=== PATIENT | male | born 1980 | race Two or more races ===

== ENCOUNTER 2018-07-04 11:20 | Emergency (ER) | payer SELFPAY ==
[2018-07-04] MEDS ORDERED: DIPH/PERTUSS(ACELL)/TETANUS VAC/PF 0.5 ML SYR (>=10YO) IM ONE (11:51)
--- NOTE | 2018-07-04 11:52 | ER Document Report ---
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 Patient was unable to locate any of the tissue that came off of the tip of the thumb. His last tetanus shot is while he was in high school. He has no medical problems and has no allergies. He did drive to the ER today. - Related Data Allergies/Adverse Reactions: No Known Allergies Allergy (Unverified 07/04/18 11:22) Physical Exam - Vital signs Vitals: Temp Pulse Resp BP Pulse Ox 98.2 F 93 15 120/79 99 07/04/18 11:41 07/04/18 11:41 07/04/18 11:41 07/04/18 11:41 07/04/18 11:41 Course - Vital Signs Vital signs: Temp Pulse Resp BP Pulse Ox 98.2 F 93 15 120/79 99 07/04/18 11:41 07/04/18 11:41 07/04/18 11:41 07/04/18 11:41 07/04/18 11:41
--- NOTE | 2018-07-04 12:53 | RADIOLOGY REPORT (SQ) ---
EXAM DESCRIPTION: FINGER RIGHT COMPLETED DATE/TIME: 07/04/2018 12:41 pm REASON FOR STUDY: right thumb x-ray COMPARISON: None. NUMBER OF VIEWS: Three views. TECHNIQUE: AP, lateral, and oblique images acquired of the right thumb. LIMITATIONS: None. FINDINGS: MINERALIZATION: Normal. BONES: No acute fracture or dislocation. No worrisome bone lesions. SOFT TISSUES: Distal soft tissue defect. No foreign body. OTHER: No other significant finding. IMPRESSION: AMPUTATION OF THE DISTAL SOFT TISSUES OF THE THUMB. NO FRACTURE. NO RADIOPAQUE FOREIGN BODY. COMMENT: SITE OF TRAUMA/COMPLAINT MARKED/STAMP COMPLETED: YES. TECHNICAL DOCUMENTATION: JOB ID: [id number] [email or web address]- All Rights Reserved Reading location - IP/workstation name: [email or web address]
[2018-07-04] MEDS ORDERED: IBUPROFEN 600 MG TABLET PO ONE (13:41)
--- NOTE | 2018-07-04 13:58 | ER Document Report ---
ED General - General Chief Complaint: Finger Injury Stated Complaint: FINGER INJURY Time Seen by Provider: 07/04/18 11:48 Mode of Arrival: Ambulatory - [facility] Notes: Patient is a 37-year-old male that presents to the emergency department for chief complaint of right thumb injury. Just prior to arrival patient cut his right thumb on a saw at work. His tetanus vaccine was more than 10 years ago. He reports pain in the tip of his right thumb that is worse with any kind of movement. He has not taken any medication for his pain. He denies relieving factors. He states he looked around for the amputated part of his thumb but could not find it. He denies other injuries. Past Medical History: Negative Past Surgical History: Negative Social History: Denies drugs alcohol and tobacco Family History: Reviewed and noncontributory for presenting illness Allergies: Reviewed, see documented allergy list. REVIEW OF SYSTEMS: CONSTITUTIONAL : No fever No chills No diaphoresis No recent illness EENT: No vision changes No congestion No sore throat CARDIOVASCULAR: No chest pain No palpitations RESPIRATORY: No shortness of breath No cough No difficulty breathing GASTROINTESTINAL: No abdominal pain No nausea No vomiting No diarrhea GENITOURINARY: No dysuria No hematuria No difficulty urinating MUSCULOSKELETAL: No back pain No leg pain No arm pain Right hand pain SKIN: No rashes Finger laceration LYMPHATIC: No swollen, enlarged glands. NEUROLOGICAL: No lightheadedness No headache No weakness No paresthesias PSYCHIATRIC: No anxiety No depression PHYSICAL EXAMINATION: Vital signs reviewed, nursing noted reviewed. GENERAL: Well-appearing, well-nourished and in no acute distress. HEAD: Atraumatic, normocephalic. EYES: Eyes appear normal, extraocular movements intact, sclera anicteric, conjunctiva are normal. ENT: nares patent, oropharynx clear without exudates. Moist mucous membranes. NECK: Normal range of motion, supple without lymphadenopathy LUNGS: Breath sounds clear to auscultation bilaterally and equal. No wheezes rales or rhonchi. HEART: Regular rate and rhythm without murmurs ABDOMEN: Soft, nontender, normoactive bowel sounds. No rebound, guarding, or rigidity. No masses appreciated. EXTREMITIES: Distal tip of right thumb amputated with no active bleeding, no bony tenderness or exposed bone, good range of motion, no pitting or edema. NEUROLOGICAL: No focal neurological deficits. Moves all extremities spontaneously Motor and sensory grossly intact on exam. PSYCH: Normal mood, normal affect. SKIN: Warm, Dry, normal turgor, distal right first digit laceration with partial involvement of nail - Related Data Allergies/Adverse Reactions: No Known Allergies Allergy (Unverified 07/04/18 11:22) Past Medical History - General Information source: Patient - Social History Smoking Status: Never Smoker Frequency of alcohol use: None Drug Abuse: None Family History: Reviewed & Not Pertinent Patient has suicidal ideation: No Patient has homicidal ideation: No Renal/ Medical History: Denies: Hx Peritoneal Dialysis Physical Exam - Vital signs Vitals: Temp Pulse Resp BP Pulse Ox 98.2 F 93 15 120/79 99 07/04/18 11:41 07/04/18 11:41 07/04/18 11:41 07/04/18 11:41 07/04/18 11:41 Course - Re-evaluation Re-evalutation: 07/04/18 13:56 Vitals reviewed. Nursing notes reviewed. Tetanus vaccine was updated. Patient given ibuprofen for pain. X-ray shows no bony involvement of the laceration. There is no exposed bone on physical exam. Patient's bleeding has stopped. His wound was cleaned copiously with Shur-Clens and dressed with Gelfoam and a bulky gauze dressing. Patient was encouraged to follow in the next few days for wound reevaluation. He was counseled on symptoms of infection and return precautions. He was counseled on wound care. He is stable at discharge. Finger X-Ray 07/04/18 11:51 IMPRESSION: AMPUTATION OF THE DISTAL SOFT TISSUES OF THE THUMB. NO FRACTURE. NO RADIOPAQUE FOREIGN BODY. - Vital Signs Vital signs: Temp Pulse Resp BP Pulse Ox 98.2 F 93 15 120/79 99 07/04/18 11:41 07/04/18 11:41 07/04/18 11:41 07/04/18 11:41 07/04/18 11:41 Procedures - Immobilization Right Thumb Time completed: 13:58 Pre-Proc Neuro Vasc Exam: Other - No active bleeding Performed by: RN Notes: 07/04/18 13:58 AlumaFoam finger splint placed over right thumb for protection of his distal amputation and immobilization. Neurovascular exam unchanged after splinting. Discharge - Discharge Clinical Impression: Laceration of thumb with damage to nail Qualifiers: Encounter type: initial encounter Foreign body presence: without foreign body Laterality: right Qualified Code(s): S61.111A - Laceration without foreign body of right thumb with damage to nail, initial encounter Condition: Stable Disposition: HOME, SELF-CARE Instructions: Tetanus Immunization Given ([facility]), Laceration Care ([facility]) Additional Instructions: Please return to the emergency department if you have any worsening, or concern of your symptoms. Please return to the emergency department if you develop chest pain, difficulty breathing, severe abdominal pain, or ongoing vomiting. Please follow-up with your primary care physician in 2-3 days and any other recommended physicians. If prescribed, take all medications as directed. If you have any questions or concerns do not hesitate to return the emergency department for evaluation. Referrals: [facility] [Provider Group] - Follow up as needed
[2018-07-04 14:30] VITALS: BP 120/64
== END 2018-07-04 14:32 | disposition home or self-care (01) ==
LOC: ER 11:20
DX: S61.111A Laceration without foreign body of right thumb with damage to nail, initial encounter (principal); W29.8XXA Contact with other powered hand tools and household machinery, initial encounter; Y99.0 Civilian activity done for income or pay; Z23 Encounter for immunization
CPT/HCPCS: 90471; 90715; 99283

== ENCOUNTER 2018-11-26 15:59 | Inpatient (IN) | payer SELFPAY ==
--- NOTE | 2018-11-26 17:35 | ER Document Report ---
ED Medical Screen (RME) - General Chief Complaint: Abdominal Pain Stated Complaint: ABDOMINAL PAIN Time Seen by Provider: 11/26/18 17:29 TRAVEL OUTSIDE OF THE [place] IN LAST 30 DAYS: No - HPI Notes: 11/26/18 17:33 Patient is a 38-year-old male with a history of umbilical hernia who presents complaining of suprapubic pain is been present for about a week, but getting worse. Patient states on occasion he will have some discomfort when he urinates, but has not noticed any drainage. He has not noticed any rash or lesion. He is eating and drinking without difficulties. He is having normal bowel movements. No testicular or scrotal pains. Denies drug allergies. Denies JOSE, fever, neck pain, URI, CP, SOB, dysuria, back pain, or rash. I have treated and performed a rapid initial assessment of this patient. A comprehensive ED assessment and evaluation of the patient, analysis of test results and completion of medical decision making process will be conducted by additional ED providers. PHYSICAL EXAMINATION: GENERAL: Well-appearing, well-nourished and in no acute distress. A&Ox4. Answers questions appropriately. LUNGS: Breath sounds clear to auscultation bilaterally and equal. No wheezes rales or rhonchi. HEART: Regular rate and rhythm without murmurs, rubs, gallops. ABDOMEN: Soft, nondistended abdomen. No guarding, no rebound. Normal bowel sounds present. No CVA tenderness bilaterally. + relatively smaller umbilical hernia noted (difficult to entirely reduce in triage), + tenderness suprapubic area (cannot elicit thorough abd exam w/o bed, however). : Uncircum. No obvious urethral discharge, rash, lesion, ulceration. No testicular swelling or tenderness appreciated. No transverse lie. Hemostatic intact bilaterally. - Related Data Allergies/Adverse Reactions: No Known Allergies Allergy (Verified 11/26/18 16:44) Past Medical History - Social History Chew tobacco use (# tins/day): No Frequency of alcohol use: Occasional Drug Abuse: None Renal/ Medical History: Denies: Hx Peritoneal Dialysis Physical Exam - Vital signs Vitals: Temp Pulse Resp BP Pulse Ox 98.2 F 94 18 123/84 98 11/26/18 16:45 11/26/18 16:45 11/26/18 16:45 11/26/18 16:45 11/26/18 16:45 Course - Vital Signs Vital signs: Temp Pulse Resp BP Pulse Ox 98.2 F 94 18 123/84 98 11/26/18 16:45 11/26/18 16:45 11/26/18 16:45 11/26/18 16:45 11/26/18 16:45
[2018-11-26 18:03] LABS: APPEARANCE,URINE CLEAR; BILIRUBIN,URINE NEGATIVE (NEGATIVE); COLOR,URINE AMBER; GLUCOSE, URINE NEGATIVE (NEGATIVE); KETONES,URINE NEGATIVE (NEGATIVE); LEUKOCYTE ESTERASE,URINE NEGATIVE (NEGATIVE); NITRITE,URINE NEGATIVE (NEGATIVE); PROTEIN,URINE NEGATIVE (NEGATIVE); URINE SPECIFIC GRAVITY 1.029; UROBILINOGEN,URINE NEGATIVE mg/dL (<2.0)
[2018-11-26 18:09] LABS: ABSOLUTE BASOPHILS # (AUTO) 0.1 10^3/uL (0.0-0.2); ABSOLUTE EOSINOPHILS # (AUTO) 0.3 10^3/uL (0.0-0.6); ABSOLUTE LYMPHOCYTES (AUTO) 2.6 10^3/uL (0.5-4.7); ABSOLUTE MONOCYTES (AUTO) 1.5 10^3/uL (0.1-1.4); ABSOLUTE NEUT (AUTO) 10.4 10^3/uL (1.7-8.2); BASOPHILS % (AUTO) 0.4 % (0-2); EOSINOPHILS % (AUTO) 2.1 % (0-6); HEMATOCRIT 39.8 % (37.9-51.0); HEMOGLOBIN 13.7 g/dL (13.5-17.0); LYMPHOCYTES % (AUTO) 17.3 % (13-45); MEAN CORPUSCULAR HEMOGLOBIN 30.1 pg (27.0-33.4); MEAN CORPUSCULAR HGB CONC 34.5 g/dL (32.0-36.0); MEAN CORPUSCULAR VOLUME 87 fl (80-97); MONOCYTES % (AUTO) 10.1 % (3-13); PLATELET COUNT 505 10^3/uL (150-450); RED BLOOD COUNT 4.55 10^6/uL (4.35-5.55); RED CELL DISTRIBUTION WIDTH 11.9 % (11.5-14.0); SEGMENTED NEUTROPHILS % (AUTO) 70.1 % (42-78); TOTAL CELLS COUNTED % (AUTO) 100 %; WHITE BLOOD COUNT 14.9 10^3/uL (4.0-10.5)
[2018-11-26 18:32] LABS: ALANINE AMINOTRANSFERASE 161 U/L (21-72); ALBUMIN 4.4 g/dL (3.5-5.0); ALKALINE PHOSPHATASE 218 U/L (38-126); ANION GAP 11 (5-19); ASPARTATE AMINO TRANSFERASE 80 U/L (17-59); BILIRUBIN,DIRECT 0.4 mg/dL (0.0-0.4); BILIRUBIN,TOTAL 0.9 mg/dL (0.2-1.3); BLOOD UREA NITROGEN 16 mg/dL (7-20); CARBON DIOXIDE 25 mmol/L (22-30); CHLORIDE 104 mmol/L (98-107); GLUCOSE 106 mg/dL (75-110); POTASSIUM 4.8 mmol/L (3.6-5.0); SODIUM 140.1 mmol/L (137-145); TOTAL PROTEIN 8.1 g/dL (6.3-8.2)
[2018-11-26] MEDS ORDERED: KETOROLAC TROMETHAMINE INJ/PF 30 MG/1 ML SDV IV ONE (19:14)
[2018-11-26] MEDS ORDERED: ONDANSETRON HCL INJ/PF 4 MG/2 ML SDV IV ONE (19:16)
[2018-11-26] MEDS ORDERED: NORMAL SALINE 1000 ML 1,000 ML IV ONE (19:16)
[2018-11-26 19:41] LABS: CHLAM PCR NOT DETECTED (NOT DETECT); GON PCR NOT DETECTED (NOT DETECT)
--- NOTE | 2018-11-26 20:40 | ER Document Report ---
ED General - General Chief Complaint: Abdominal Pain Stated Complaint: ABDOMINAL PAIN Time Seen by Provider: 11/26/18 17:29 Notes: Patient is a 38-year-old male without chronic medical problems, current everyday smoker, presents with complaints of 1 week of progressively worsening lower abdominal pain. Patient states that the pain started 1 week ago, has gotten progressively worse since that time. Describes it as a severe, throbbing, achi ng pain to the diffuse lower abdomen but most focal to the suprapubic quadrant. Regards symptoms as being severe in nature. States it is worsened by any attempt to having a bowel movement. Nothing improves the pain. Denies having any similar symptoms in the past. Has not had fever but states that he feels very warm and then sometimes is shaking. Has had nausea but no vomiting. Does not have a primary care physician. Has no history of abdominal surgeries. TRAVEL OUTSIDE OF THE [place] IN LAST 30 DAYS: No - Related Data Allergies/Adverse Reactions: No Known Allergies Allergy (Verified 11/26/18 16:44) Past Medical History - General Information source: Patient - Social History Smoking Status: Current Every Day Smoker Chew tobacco use (# tins/day): No Frequency of alcohol use: Occasional Drug Abuse: None Lives with: Spouse/Significant other Family History: Reviewed & Not Pertinent Patient has suicidal ideation: No Patient has homicidal ideation: No Renal/ Medical History: Denies: Hx Peritoneal Dialysis Review of Systems - Review of Systems Notes: Constitutional: Negative for fever. HENT: Negative for sore throat. Eyes: Negative for visual changes. Cardiovascular: Negative for chest pain. Respiratory: Negative for shortness of breath. Gastrointestinal: Positive for abdominal pain, nausea Genitourinary: Negative for dysuria. Musculoskeletal: Negative for back pain. Skin: Negative for rash. Neurological: Negative for headaches, weakness or numbness. 10 point ROS negative except as marked above and in HPI. Physical Exam - Vital signs Vitals: Temp Pulse Resp BP Pulse Ox 98.2 F 94 18 123/84 98 11/26/18 16:45 11/26/18 16:45 11/26/18 16:45 11/26/18 16:45 11/26/18 16:45 Interpretation: Normal Notes: PHYSICAL EXAMINATION: GENERAL: Appears moderately unwell but in no acute distress. HEAD: Atraumatic, normocephalic. EYES: Pupils equal round and reactive to light, extraocular movements intact, sclera anicteric, conjunctiva are normal. ENT: nares patent, oropharynx clear without exudates. Moist mucous membranes. NECK: Normal range of motion, supple without lymphadenopathy LUNGS: Breath sounds clear to auscultation bilaterally and equal. No wheezes rales or rhonchi. HEART: Regular rate and rhythm without murmurs ABDOMEN: Soft, focal tenderness to the right lower quadrant, suprapubic quadrant and left lower quadrant with rebound in all locations. Normoactive bowel soun ds. Rectal: Pain on palpation of the prostate although no bogginess or apparent enlargement of the prostate. EXTREMITIES: Normal range of motion, no pitting or edema. No cyanosis. NEUROLOGICAL: No focal neurological deficits. Moves all extremities spontaneously and on command. PSYCH: Normal mood, normal affect. SKIN: Warm, Dry, normal turgor, no rashes or lesions noted. Course - Re-evaluation Re-evalutation: 11/26/18 20:40 Patient presents with 1 week of progressively worsening suprapubic and right lower quadrant abdominal pain. On exam the patient has some rebound tenderness to the right lower and suprapubic quadrants. No upper abdominal tenderness. No testicular exam abnormalities including positive cremasteric reflex, no tenderness over the testicles or epididymides on either side. No penile discharge or lesions. Prostate exam does demonstrate that the patient does have significant prostatic tenderness on palpation. CT abdomen pelvis will be completed for evaluation of possible intra-abdominal abscess secondary to possible appendix perforation versus acute appendicitis. Initial labs demonstrate leukocytosis, otherwise unremarkable. 11/26/18 21:08 CT abdomen pelvis does demonstrate sigmoid diverticulitis with an adjacent abscess. Case discussed with hospitalist Dr. Sommer who is accepted the patient. Also consulted Dr. Clayton and spoke to him regarding this case formally. Ciprofloxacin and Flagyl have been initiated. - Vital Signs Vital signs: Temp Pulse Resp BP Pulse Ox 97.6 F 78 18 131/68 H 95 11/26/18 23:23 11/27/18 00:47 11/26/18 23:23 11/26/18 23:23 11/26/18 23:23 - Laboratory Result Diagrams: 11/26/18 17:47 11/26/18 17:47 Laboratory results interpreted by me: 11/26/18 11/26/18 17:47 17:47 WBC 14.9 H Plt Count 505 H Absolute Neutrophils 10.4 H Absolute Monocytes 1.5 H AST 80 H ALT 161 H Alkaline Phosphatase 218 H - Diagnostic Test Radiology reviewed: Image reviewed, Reports reviewed Discharge - Discharge Clinical Impression: Sigmoid diverticulitis, Abscess of sigmoid colon Condition: Fair Disposition: ADMITTED INPATIENT Admitting Provider: Kemal (Hospitalist) Unit Admitted: Medical Floor
--- NOTE | 2018-11-26 20:43 | RADIOLOGY REPORT (SQ) ---
CT ABDOMEN PELVIS WITH IV CONTRAST HISTORY: Right lower quadrant pain. COMPARISON: None. TECHNIQUE: CT scan of the abdomen and pelvis was performed with IV contrast. This exam was performed according to our departmental dose-optimization program, which includes automated exposure control, adjustment of the mA and/or kV according to patient size and/or use of iterative reconstruction technique. FINDINGS: The lung bases are clear. No pleural or pericardial effusions. There is no hiatal hernia. The liver, spleen, pancreas, gallbladder, adrenal glands, and kidneys are unremarkable. No urinary stones are seen. There is wall thickening of the urinary bladder which is likely reactive to the overlying inflammation. There is diffuse wall thickening with surrounding inflammatory stranding of the sigmoid colon consistent with acute diverticulitis. Additionally, there is a extraluminal 3.3 x 3.5 cm hypodense collection adjacent to the sigmoid colon consistent with developing abscess. No small bowel obstruction. The appendix is normal. The aorta is normal caliber. No acute bony findings are seen. There is no pathologic body wall hernia. IMPRESSION: Acute sigmoid diverticulitis with adjacent 3.5 cm developing abscess.
[2018-11-26] MEDS ORDERED: METRONIDAZOLE 500 MG/NS RTU 500 MG/100 ML RTUPB IV ONE (20:58)
[2018-11-26] MEDS ORDERED: CIPROFLOXACIN 400 MG/D5W RTU 400 MG/200 ML RTUPB IV ONE (20:58)
[2018-11-26] MEDS ORDERED: RINGERS SOLUTION,LACTATED 1,000 ML IV ONE (20:59)
[2018-11-26] MEDS ORDERED: ONDANSETRON HCL INJ/PF 4 MG/2 ML SDV IV PRN (21:35)
[2018-11-26] MEDS ORDERED: ACETAMINOPHEN 650 MG SUPP.RECT PR PRN (21:35)
[2018-11-26] MEDS ORDERED: NICOTINE 21 MG/24 HR PATCH.TD24 TD PRN (21:43)
--- NOTE | 2018-11-26 23:34 | PDOC H&P ---
History of Present Illness Admission Date/PCP: 11/26/2018 No PCP Patient complains of: Abdominal pain History of Present Illness: FRANDY SANDOVAL is a 38 year old male who presented to the Emergency Room with a 1 1/2 week history of abdominal pain. He admits a constantly present, waxing and waning (from mild to extremely severe), dull, aching, pressure-like pain in his suprapubic region, without radiation. He endorses that the pain worsens in association with defecation and urination. He acknowledges that his pain has been transiently improved by taking Rusty aspirin, 2 tablets every 4 hours. He further admits frequent episodes of subjective fever with chills and generalized malaise occurring over the last 7 days. He also endorses brief periods of anorexia associated with the most severe pain episodes. He denies prior similar episodes and he has not identified any other aggravating or ameliorating factors for his pain. In the ER he was found to have acute sigmoid diverticulitis with abscess formation and as such was admitted for further evaluation and treatment. Past Medical History Cardiac Medical History: Denies: Coronary Artery Disease, Hypertension Pulmonary Medical History: Denies: Asthma, Chronic Obstructive Pulmonary Disease (COPD) EENT Medical History: Reports: Eyes - prescription eyewear Denies: Cataracts, Ears - hearing aids Neurological Medical History: Denies: Multiple Sclerosis, Seizures Endocrine Medical History: Denies: Diabetes Mellitus Type 1, Diabetes Mellitus Type 2, Hyperthyroidism, Hypothyroidism Renal/ Medical History: Denies: Chronic Kidney Disease, Nephrolithiasis Malignancy Medical History: Reports: None GI Medical History: Denies: Cirrhosis, Crohn's Disease, Gastroesophageal Reflux Disease, Hepatitis, Peptic Ulcer Disease, Ulcerative Colitis Musculoskeltal Medical History: Denies: Arthritis, Fibromyalgia Skin Medical History: Denies: Eczema, Psoriasis Psychiatric Medical History: Denies: Alcohol Dependency, Substance Abuse, Tobacco Dependency Traumatic Medical History: Reports: None Hematology: Denies: Anemia, Bleeding Tendencies Infectious Medical History: Reports: None Past Surgical History Past Surgical History: Reports: None Social History Information Source: Patient Lives with: Spouse/Significant other Smoking Status: Current Every Day Smoker Frequency of Alcohol Use: Occasional Hx Recreational Drug Use: No Drugs: None Hx Prescription Drug Abuse: No - Advance Directive Resuscitation Status: Full Code Surrogate healthcare decision maker:: Omid Sandoval (his father) Family History Family History: CAD. denies: DM, Hypertension, Malignancy Parental Family History Reviewed: Yes Children Family History Reviewed: No Sibling(s) Family History Reviewed.: Yes Medication/Allergy Home Medications: Aspirin [Aspirin 325 mg Tablet] 650 mg PO Q4HP PRN MDD 12 tablets 11/26/18 Allergies/Adverse Reactions: No Known Allergies Allergy (Verified 11/26/18 16:44) Review of Systems Constitutional: PRESENT: chills - Subjective, fever(s) - Subjective, other - Generalized malaise Eyes: ABSENT: visual disturbances, other - Eye pain Ears: ABSENT: hearing changes, other - Ear pain Nose, Mouth, and Throat: ABSENT: mouth pain, sore throat Cardiovascular: ABSENT: chest pain, dyspnea on exertion, edema, orthropnea, palpitations Respiratory: ABSENT: cough, dyspnea Gastrointestinal: PRESENT: as per HPI, abdominal pain, other - Episodic anorexia. ABSENT: constipation, diarrhea, nausea, vomiting Genitourinary: ABSENT: difficulty urinating, dysuria, hematuria Musculoskeletal: ABSENT: back pain, joint swelling, muscle weakness Integumentary: ABSENT: pruritus, rash Neurological: ABSENT: confusion, convulsions, focal weakness, memory loss, syncope Psychiatric: ABSENT: anxiety, depression Endocrine: ABSENT: cold intolerance, heat intolerance Hematologic/Lymphatic: ABSENT: easy bleeding, easy bruising Physical Exam Vital Signs: Temp Pulse Resp BP Pulse Ox 100.1 F 81 18 116/73 100 11/26/18 20:20 11/26/18 20:20 11/26/18 20:20 11/26/18 20:20 11/26/18 20:20 Intake & Output 11/24/18 11/25/18 11/26/18 23:59 23:59 23:59 Weight 83.5 kg General appearance: PRESENT: no acute distress, cooperative Head exam: PRESENT: atraumatic, normocephalic Eye exam: ABSENT: conjunctival injection, scleral icterus Ear exam: PRESENT: normal external ear exam. ABSENT: bleeding, drainage Mouth exam: PRESENT: dry mucosa, neck supple Neck exam: ABSENT: thyromegaly, tracheal deviation Respiratory exam: PRESENT: clear to auscultation paulino, symmetrical, unlabored Cardiovascular exam: PRESENT: RRR. ABSENT: clicks, gallop, rubs Pulses: PRESENT: normal radial pulses, normal dorsalis pedis pul Vascular exam: PRESENT: normal capillary refill. ABSENT: pallor GI/Abdominal exam: PRESENT: distended - Minimally distended, guarding - Moderate involuntary guarding noted on exam of the suprapubic abdomen, hernia - Small umbilical hernia noted, hypoactive bowel sounds, rebound - Moderately severe rebound tenderness noted in the suprapubic region., soft, tenderness - Moderately severe tenderness on palpation of the suprapubic area, left greater than right and maximal intensity just to the left of the midline.. ABSENT: organolmegaly, rigid Rectal exam: PRESENT: deferred Extremities exam: ABSENT: joint swelling, pedal edema Musculoskeletal exam: PRESENT: full ROM, normal inspection Neurological exam: PRESENT: alert, oriented to person, oriented to place, oriented to time, oriented to situation, CN II-XII grossly intact. ABSENT: motor sensory deficit Psychiatric exam: PRESENT: appropriate affect, normal mood Skin exam: PRESENT: dry, intact, warm. ABSENT: jaundice, rash, urticaria Results Laboratory Results: 11/26/18 17:47 11/26/18 17:47 11/26/18 11/26/18 11/26/18 17:47 17:47 17:47 WBC 14.9 H RBC 4.55 Hgb 13.7 Hct 39.8 MCV 87 MCH 30.1 MCHC 34.5 RDW 11.9 Plt Count 505 H Seg Neutrophils % 70.1 Lymphocytes % 17.3 Monocytes % 10.1 Eosinophils % 2.1 Basophils % 0.4 Absolute Neutrophils 10.4 H Absolute Lymphocytes 2.6 Absolute Monocytes 1.5 H Absolute Eosinophils 0.3 Absolute Basophils 0.1 Sodium 140.1 Potassium 4.8 Chloride 104 Carbon Dioxide 25 Anion Gap 11 BUN 16 Creatinine 0.98 Est GFR ( Amer) > 60 Est GFR (Non-Af Amer) > 60 Glucose 106 Calcium 10.0 Total Bilirubin 0.9 AST 80 H ALT 161 H Alkaline Phosphatase 218 H Total Protein 8.1 Albumin 4.4 Urine Color ADRIANNE Urine Appearance CLEAR Urine pH 5.0 Ur Specific [place] 1.029 Urine Protein NEGATIVE Urine Glucose (UA) NEGATIVE Urine Ketones NEGATIVE Urine Blood NEGATIVE Urine Nitrite NEGATIVE Ur Leukocyte Esterase NEGATIVE Urine WBC (Auto) 1 Urine RBC (Auto) 1 Impressions: Abdomen/Pelvis CT 11/26/18 19:14 IMPRESSION: Acute sigmoid diverticulitis with adjacent 3.5 cm developing abscess. Assessment and Plan - Diagnosis (1) Acute diverticulitis of intestine Is this a current diagnosis for this admission?: Yes Plan: Patient be treated with IV fluids utilizing lactated Ringer's at 250 mL/h. He will be started on IV antibiotics utilizing Zosyn 3.375 g every 6 hours. He will be treated with Nubain 10 mg IV every 3 hours as needed for pain. He will receive Tylenol suppository 650 mg rectally every 4 hours as needed for control of fever greater than 101 F. He will be maintained n.p.o. until cleared for dietary intake by surgery. A surgical consult with Dr. Clayton will be obtained. Serial serum lactates will be obtained and daily laboratory consisting of a CBC, basic metabolic profile, a hepatic profile and a magnesium level will be obtained. Patient is being admitted to a medical floor and will receive usual supportive and symptomatic therapies and treatments as appropriate. (2) Diverticulitis of intestine with perforation and abscess Qualifiers: Diverticulitis site: large intestine Diverticulitis bleeding: without bleeding Qualified Code(s): K57.20 - Diverticulitis of large intestine with perforation and abscess without bleeding Is this a current diagnosis for this admission?: Yes Plan: Patient will be treated with Zosyn 3.375 g IV every 6 hours. Daily CBC's, magnesium levels and basic metabolic profiles will be followed as part of his assessment. He will be maintained on IV fluids at high volume initially and he will be placed on a medical floor. Surgical consultation with Dr. Clayton will be obtained. His pain will be treated with Nubain 10 mg IV every 3 hours as needed. (3) Elevated temperature due to infection Is this a current diagnosis for this admission?: Yes Plan: Patient's temperature will be controlled using acetaminophen 650 mg suppositories every 4 hours as needed for fever greater than 101 F. Rectal suppositories are required at this time due to the patient's n.p.o. status. (4) Leukocytosis Qualifiers: Leukocytosis type: unspecified Qualified Code(s): D72.829 - Elevated white blood cell count, unspecified Is this a current diagnosis for this admission?: Yes Plan: Patient's CBC will be followed on a daily basis with further investigation of the patient's leukocytosis if indicated. (5) Elevated liver function tests Is this a current diagnosis for this admission?: Yes Plan: Patient's liver enzymes will be followed on a daily basis with further evaluation as warranted. (6) Tobacco use disorder, severe, dependence Is this a current diagnosis for this admission?: Yes Plan: Smoking cessation is advised and counseled briefly. A nicotine replacement patch will be provided for the patient's use, if desired. - Time Time Spent with patient: 25-34 minutes Smoking Cessation Education: 3 to 10 minutes Medications reviewed and adjusted accordingly: No - No meds Anticipated discharge: Home - Inpatient Certification Based on my medical assessment, after consideration of the patient's comorbidities, presenting symptoms, or acuity I expect that the services needed warrant INPATIENT care.: Yes I certify that my determination is in accordance with my understanding of Medicare's requirements for reasonable and necessary INPATIENT services [42 CFR 412.3e].: Yes Medical Necessity: Need Close Monitoring Due to Risk of Patient Decompensation, Need For IV Fluids, Need for Pain Control, Need for IV Antibiotics, Need for Surgery, Risk of Complication if Not Cared For in Hospital
--- NOTE | 2018-11-26 23:46 | ADVANCED CARE ---
- Diagnosis (1) Acute diverticulitis of intestine Diagnosis Current: Yes (2) Diverticulitis of intestine with perforation and abscess Diagnosis Current: Yes (3) Elevated temperature due to infection Diagnosis Current: Yes (4) Leukocytosis Diagnosis Current: Yes (5) Elevated liver function tests Diagnosis Current: Yes (6) Tobacco use disorder, severe, dependence Diagnosis Current: Yes Attendance: Patient Resuscitation Status: Full Code Discussion: Discussed the patient's desires for his care should he develop a cardiac or respiratory arrest during his hospital course. He is adamant that he wishes full resuscitation and all efforts be made to revive him. His option to change his mind at any time was discussed briefly and he was informed that documents such as a living will are available and information about them is in his hospital admission packet. He was advised to consider making a living will directing his wishes for the care he should receive in the event of a cardiac or respiratory arrest. He has declared his father Omid Pichardo to be his medical decision making surrogate. Care Planning Goals: 1. Recommend the patient consider a living will 2. Medical surrogate decision- maker: The patient's father Omid Pichardo. Document(s) Completed: None but the patient promises to consider a living will. Time Spent: 30 minutes
[2018-11-27] MEDS: RINGERS SOLUTION,LACTATED 1,000 ML IV PRN ×2 (00:05→14:31)
[2018-11-27] MEDS: FAMOTIDINE INJ/PF 20 MG/2 ML SDV IV SCH ×3 (00:11→21:39)
[2018-11-27] MEDS: HEPARIN SOD (PORCINE) 5,000 UNIT/ML 1 ML SYRINGE SUBCUT SCH ×4 (00:11→21:39)
[2018-11-27] MEDS ORDERED: PIPERACILLIN/TAZOBACTAM 3.375 GM VIAL IV ONE (00:18)
--- NOTE | 2018-11-27 00:28 | PDOC CONSULTATION ---
Consultation Consult Date: 11/27/18 Provider Consulted: MAHIN SOLARES Consult reason:: Diverticulitis History of Present Illness Admission Date/PCP: 11/26/18 21:19 History of Present Illness: FRANDY SANDOVAL is a 38 year old male Patient presents with 1 week of progressively worsening suprapubic and right lower quadrant abdominal pain. On exam the patient has some rebound tenderness to the right lower and suprapubic quadrants. No upper abdominal tenderness. No testicular exam abnormalities including positive cremasteric reflex, no tenderness over the testicles or epididymides on either side. No penile discharge or lesions. Patient does not have any nausea or vomiting or diarrhea and in fact is hungry Past Medical History Cardiac Medical History: Denies: Coronary Artery Disease, Hypertension Pulmonary Medical History: Denies: Asthma, Chronic Obstructive Pulmonary Disease (COPD) EENT Medical History: Reports: Eyes - prescription eyewear Denies: Cataracts, Ears - hearing aids Neurological Medical History: Denies: Multiple Sclerosis, Seizures Endocrine Medical History: Denies: Diabetes Mellitus Type 1, Diabetes Mellitus Type 2, Hyperthyroidism, Hypothyroidism Renal/ Medical History: Denies: Chronic Kidney Disease, Nephrolithiasis Malignancy Medical History: Reports: None GI Medical History: Denies: Cirrhosis, Crohn's Disease, Gastroesophageal Reflux Disease, Hepatitis, Peptic Ulcer Disease, Ulcerative Colitis Musculoskeltal Medical History: Denies: Arthritis, Fibromyalgia Skin Medical History: Denies: Eczema, Psoriasis Psychiatric Medical History: Denies: Alcohol Dependency, Substance Abuse, Tobacco Dependency Traumatic Medical History: Reports: None Hematology: Denies: Anemia, Bleeding Tendencies Infectious Medical History: Reports: None Past Surgical History Past Surgical History: Reports: None Social History Lives with: Spouse/Significant other Smoking Status: Current Every Day Smoker Frequency of Alcohol Use: Occasional Hx Recreational Drug Use: No Drugs: None Hx Prescription Drug Abuse: No - Advance Directive Resuscitation Status: Full Code Family History Family History: CAD. denies: DM, Hypertension, Malignancy Parental Family History Reviewed: No Children Family History Reviewed: NA Sibling(s) Family History Reviewed.: NA Medication/Allergy Home Medications: Aspirin [Aspirin 325 mg Tablet] 650 mg PO Q4HP PRN MDD 12 tablets 11/26/18 Allergies/Adverse Reactions: No Known Allergies Allergy (Verified 11/26/18 16:44) Review of Systems Constitutional: PRESENT: other - Sweats Eyes: ABSENT: visual disturbances Ears: ABSENT: hearing changes Nose, Mouth, and Throat: ABSENT: as per HPI, headache(s), mouth pain, sore throat, vertigo, other Breasts: ABSENT: as per HPI, other Cardiovascular: ABSENT: as per HPI, chest pain, dyspnea on exertion, edema, orthropnea, palpitations, other Respiratory: ABSENT: cough, hemoptysis Gastrointestinal: PRESENT: other - Tenderness of the left abdomen and the midline pubis Genitourinary: ABSENT: dysuria, hematuria Musculoskeletal: ABSENT: joint swelling Integumentary: ABSENT: rash, wounds Neurological: ABSENT: abnormal gait, abnormal speech, confusion, dizziness, focal weakness, syncope Psychiatric: ABSENT: anxiety, depression, homidical ideation, suicidal ideation Endocrine: ABSENT: cold intolerance, heat intolerance, polydipsia, polyuria Hematologic/Lymphatic: ABSENT: easy bleeding, easy bruising Allergic/Immunologic: ABSENT: as per HPI, seasonal rhinorrhea, other Physical Exam Vital Signs: Temp Pulse Resp BP Pulse Ox 98.3 F 85 16 117/70 100 11/26/18 22:48 11/26/18 22:48 11/26/18 22:48 11/26/18 22:48 11/26/18 22:48 Intake & Output 11/25/18 11/26/18 11/27/18 06:59 06:59 06:59 Weight 83.5 kg General appearance: PRESENT: mild distress Head exam: PRESENT: normocephalic Eye exam: PRESENT: EOMI Ear exam: PRESENT: normal external ear exam Mouth exam: PRESENT: moist Neck exam: PRESENT: full ROM Respiratory exam: PRESENT: clear to auscultation paulino Cardiovascular exam: PRESENT: RRR Pulses: PRESENT: normal radial pulses, normal femoral pulses, +2 pedal pulses bilateral Vascular exam: PRESENT: normal capillary refill GI/Abdominal exam: PRESENT: other - Abdominal exam shows tenderness along the left side of the abdomen no palpable masses suprapubic tenderness Rectal exam: PRESENT: deferred Extremities exam: PRESENT: full ROM Musculoskeletal exam: PRESENT: full ROM Neurological exam: PRESENT: alert, awake, oriented to person, oriented to place, oriented to time Psychiatric exam: PRESENT: appropriate affect Skin exam: PRESENT: dry Results Laboratory Results: 11/26/18 17:47 11/26/18 17:47 06/11/19 06/11/19 06/11/19 17:47 17:47 17:47 WBC 14.9 H RBC 4.55 Hgb 13.7 Hct 39.8 MCV 87 MCH 30.1 MCHC 34.5 RDW 11.9 Plt Count 505 H Seg Neutrophils % 70.1 Lymphocytes % 17.3 Monocytes % 10.1 Eosinophils % 2.1 Basophils % 0.4 Absolute Neutrophils 10.4 H Absolute Lymphocytes 2.6 Absolute Monocytes 1.5 H Absolute Eosinophils 0.3 Absolute Basophils 0.1 Sodium 140.1 Potassium 4.8 Chloride 104 Carbon Dioxide 25 Anion Gap 11 BUN 16 Creatinine 0.98 Est GFR ( Amer) > 60 Est GFR (Non-Af Amer) > 60 Glucose 106 Lactic Acid Calcium 10.0 Total Bilirubin 0.9 AST 80 H ALT 161 H Alkaline Phosphatase 218 H Total Protein 8.1 Albumin 4.4 Urine Color ADRIANNE Urine Appearance CLEAR Urine pH 5.0 Ur Specific [place] 1.029 Urine Protein NEGATIVE Urine Glucose (UA) NEGATIVE Urine Ketones NEGATIVE Urine Blood NEGATIVE Urine Nitrite NEGATIVE Ur Leukocyte Esterase NEGATIVE Urine WBC (Auto) 1 Urine RBC (Auto) 1 11/26/18 22:52 WBC RBC Hgb Hct MCV MCH MCHC RDW Plt Count Seg Neutrophils % Lymphocytes % Monocytes % Eosinophils % Basophils % Absolute Neutrophils Absolute Lymphocytes Absolute Monocytes Absolute Eosinophils Absolute Basophils Sodium Potassium Chloride Carbon Dioxide Anion Gap BUN Creatinine Est GFR ( Amer) Est GFR (Non-Af Amer) Glucose Lactic Acid 0.5 L Calcium Total Bilirubin AST ALT Alkaline Phosphatase Total Protein Albumin Urine Color Urine Appearance Urine pH Ur Specific [place] Urine Protein Urine Glucose (UA) Urine Ketones Urine Blood Urine Nitrite Ur Leukocyte Esterase Urine WBC (Auto) Urine RBC (Auto) Impressions: Abdomen/Pelvis CT 11/26/18 19:14 IMPRESSION: Acute sigmoid diverticulitis with adjacent 3.5 cm developing abscess. Assessment & Plan - Plan Summary Plan Summary: Is a 38-year-old male presents for the first episode of diverticulitis. CT scan is consistent with sigmoid diverticulitis was approximately 3.5 cm abscess adjacent to his sigmoid colon My colon is markedly thickened and obvious diverticulosis throughout the sigmoid colon Recommendation n.p.o. status IV antibiotics IV hydration We will follow along with medicine department.
[2018-11-27] MEDS: PIPERACILLIN/TAZOBACTAM 3.375 GM VIAL IV SCH ×2 (00:32→05:40)
[2018-11-27 07:33] LABS: ABSOLUTE EOSINOPHILS # (AUTO) 0.3 10^3/uL (0.0-0.6); ABSOLUTE LYMPHOCYTES (AUTO) 1.8 10^3/uL (0.5-4.7); ABSOLUTE MONOCYTES (AUTO) 1.5 10^3/uL (0.1-1.4); ABSOLUTE NEUT (AUTO) 9.3 10^3/uL (1.7-8.2); BASOPHILS % (AUTO) 0.3 % (0-2); EOSINOPHILS % (AUTO) 2.3 % (0-6); HEMATOCRIT 35.7 % (37.9-51.0); HEMOGLOBIN 12.1 g/dL (13.5-17.0); LYMPHOCYTES % (AUTO) 13.7 % (13-45); MEAN CORPUSCULAR HEMOGLOBIN 29.8 pg (27.0-33.4); MEAN CORPUSCULAR VOLUME 88 fl (80-97); MONOCYTES % (AUTO) 11.6 % (3-13); PLATELET COUNT 389 10^3/uL (150-450); RED BLOOD COUNT 4.07 10^6/uL (4.35-5.55); RED CELL DISTRIBUTION WIDTH 11.8 % (11.5-14.0); SEGMENTED NEUTROPHILS % (AUTO) 72.1 % (42-78); TOTAL CELLS COUNTED % (AUTO) 100 %; WHITE BLOOD COUNT 12.9 10^3/uL (4.0-10.5)
[2018-11-27 07:58] LABS: ALANINE AMINOTRANSFERASE 106 U/L (21-72); ALBUMIN 3.2 g/dL (3.5-5.0); ALKALINE PHOSPHATASE 165 U/L (38-126); ANION GAP 8 (5-19); ASPARTATE AMINO TRANSFERASE 42 U/L (17-59); BILIRUBIN,DIRECT 0.6 mg/dL (0.0-0.4); BILIRUBIN,TOTAL 1.3 mg/dL (0.2-1.3); BLOOD UREA NITROGEN 15 mg/dL (7-20); CALCIUM 8.8 mg/dL (8.4-10.2); CARBON DIOXIDE 25 mmol/L (22-30); CHLORIDE 106 mmol/L (98-107); GLUCOSE 92 mg/dL (75-110); POTASSIUM 4.6 mmol/L (3.6-5.0); TOTAL PROTEIN 6.3 g/dL (6.3-8.2)
[2018-11-27] MEDS ORDERED: NALBUPHINE HCL INJ 10 MG/1 ML AMPULE ONE ×2 (08:24→21:20)
[2018-11-27] MEDS: NALBUPHINE HCL INJ 10 MG/1 ML AMPULE IV PRN ×2 (08:28→21:38)
[2018-11-27] MEDS ORDERED: NA PHOS,M-B/NA PHOS,DI-BA (ADULT) 133 ML ENEMA PR PRN (10:33)
--- NOTE | 2018-11-27 11:16 | PDOC PROGRESS REPORT ---
Subjective Progress Note for:: 11/27/18 Subjective:: This is a 38-year-old male admitted with complicated diverticulitis. Patient has a 3 cm abscess in the pericolonic tissues superior to the bladder, and inferior to the sigmoid colon. The patient reports that his pain is improving. He denies fevers or chills. He denies nausea and vomiting. He has not had any bowel function in the last 24 hours, denying flatus or stools. Currently he denies chest pain, shortness of breath, dizziness, orthostasis, fatigue, mal aise, blurry vision. Reason For Visit: ACUTE SIGMOID DIVERTICULITIS WITH ABSCESS Physical Exam Vital Signs: Temp Pulse Resp BP Pulse Ox 98.7 F 81 18 106/64 100 11/27/18 07:27 11/27/18 07:27 11/27/18 07:27 11/27/18 07:27 11/27/18 07:27 Intake & Output 11/26/18 11/27/18 11/28/18 06:59 06:59 06:59 Intake Total 1000 2200 Balance 1000 2200 Weight 83.7 kg General appearance: PRESENT: cooperative. ABSENT: obese Head exam: PRESENT: atraumatic, normocephalic Eye exam: PRESENT: EOMI, PERRLA. ABSENT: scleral icterus Mouth exam: PRESENT: moist, neck supple Teeth exam: ABSENT: poor dentation Neck exam: PRESENT: meningismus, tenderness, thyromegaly, tracheal deviation Respiratory exam: PRESENT: clear to auscultation paulino, unlabored. ABSENT: chest wall tenderness, tachypnea Cardiovascular exam: PRESENT: RRR Pulses: PRESENT: normal radial pulses Vascular exam: PRESENT: normal capillary refill. ABSENT: pallor GI/Abdominal exam: PRESENT: guarding - voluntary left lower quadrant and sup rapubic guarding, soft, tenderness - Left lower quadrant, suprapubic region. ABSENT: distended, rebound Rectal exam: PRESENT: deferred Extremities exam: ABSENT: clubbing Neurological exam: PRESENT: alert, awake, oriented to person, oriented to place, oriented to time, oriented to situation, CN II-XII grossly intact. ABSENT: motor sensory deficit Psychiatric exam: ABSENT: agitated, anxious, depressed Focused psych exam: ABSENT: delusional Skin exam: ABSENT: cyanosis, erythema, jaundice Results Laboratory Results: 11/27/18 07:05 11/27/18 07:05 11/26/18 11/26/18 11/26/18 17:47 17:47 17:47 WBC 14.9 H RBC 4.55 Hgb 13.7 Hct 39.8 MCV 87 MCH 30.1 MCHC 34.5 RDW 11.9 Plt Count 505 H Seg Neutrophils % 70.1 Lymphocytes % 17.3 Monocytes % 10.1 Eosinophils % 2.1 Basophils % 0.4 Absolute Neutrophils 10.4 H Absolute Lymphocytes 2.6 Absolute Monocytes 1.5 H Absolute Eosinophils 0.3 Absolute Basophils 0.1 Sodium 140.1 Potassium 4.8 Chloride 104 Carbon Dioxide 25 Anion Gap 11 BUN 16 Creatinine 0.98 Est GFR ( Amer) > 60 Est GFR (Non-Af Amer) > 60 Glucose 106 Lactic Acid Calcium 10.0 Magnesium Total Bilirubin 0.9 AST 80 H ALT 161 H Alkaline Phosphatase 218 H Total Protein 8.1 Albumin 4.4 Urine Color ADRIANNE Urine Appearance CLEAR Urine pH 5.0 Ur Specific [place] 1.029 Urine Protein NEGATIVE Urine Glucose (UA) NEGATIVE Urine Ketones NEGATIVE Urine Blood NEGATIVE Urine Nitrite NEGATIVE Ur Leukocyte Esterase NEGATIVE Urine WBC (Auto) 1 Urine RBC (Auto) 1 11/26/18 11/27/18 11/27/18 22:52 03:11 07:05 WBC RBC Hgb Hct MCV MCH MCHC RDW Plt Count Seg Neutrophils % Lymphocytes % Monocytes % Eosinophils % Basophils % Absolute Neutrophils Absolute Lymphocytes Absolute Monocytes Absolute Eosinophils Absolute Basophils Sodium Potassium Chloride Carbon Dioxide Anion Gap BUN Creatinine Est GFR ( Amer) Est GFR (Non-Af Amer) Glucose Lactic Acid 0.5 L 0.5 L 0.7 Calcium Magnesium Total Bilirubin AST ALT Alkaline Phosphatase Total Protein Albumin Urine Color Urine Appearance Urine pH Ur Specific [place] Urine Protein Urine Glucose (UA) Urine Ketones Urine Blood Urine Nitrite Ur Leukocyte Esterase Urine WBC (Auto) Urine RBC (Auto) 11/27/18 11/27/18 07:05 07:05 WBC 12.9 H RBC 4.07 L Hgb 12.1 L Hct 35.7 L MCV 88 MCH 29.8 MCHC 34.0 RDW 11.8 Plt Count 389 Seg Neutrophils % 72.1 Lymphocytes % 13.7 Monocytes % 11.6 Eosinophils % 2.3 Basophils % 0.3 Absolute Neutrophils 9.3 H Absolute Lymphocytes 1.8 Absolute Monocytes 1.5 H Absolute Eosinophils 0.3 Absolute Basophils 0.0 Sodium 139.0 Potassium 4.6 Chloride 106 Carbon Dioxide 25 Anion Gap 8 BUN 15 Creatinine 1.08 Est GFR ( Amer) > 60 Est GFR (Non-Af Amer) > 60 Glucose 92 Lactic Acid Calcium 8.8 Magnesium 1.9 Total Bilirubin 1.3 AST 42 ALT 106 H Alkaline Phosphatase 165 H Total Protein 6.3 Albumin 3.2 L Urine Color Urine Appearance Urine pH Ur Specific [place] Urine Protein Urine Glucose (UA) Urine Ketones Urine Blood Urine Nitrite Ur Leukocyte Esterase Urine WBC (Auto) Urine RBC (Auto) Impressions: Abdomen/Pelvis CT 11/26/18 19:14 IMPRESSION: Acute sigmoid diverticulitis with adjacent 3.5 cm developing abscess. Assessment & Plan - Diagnosis (1) Abscess of sigmoid colon Is this a current diagnosis for this admission?: Yes (2) Acute diverticulitis of intestine Is this a current diagnosis for this admission?: Yes - Plan Summary Plan Summary: This is a 38-year-old male with complicated diverticulitis of the sigmoid colon. The patient has a 3 cm abscess that is ill-defined at present. Patient is receiving intravenous antibiotics and reports feeling better. His abscess may be small enough to resolve completely with antibiotics alone. Continue with intravenous antibiotics for now. Continue to monitor abdominal exam and vital signs closely. The patient may require intervention if significant improvement is not seen in the next 24 to 48 hours. I will continue to follow this patient closely with you.
[2018-11-27] MEDS: PIPERACILLIN SODIUM/TAZOBACTAM 3.375 GM in NORMAL SALINE 100 ML IV SCH ×2 (11:35→18:26)
--- NOTE | 2018-11-27 16:12 | PDOC PROGRESS REPORT ---
Subjective Progress Note for:: 11/27/18 Subjective:: This is a 38-year-old male admitted with complicated diverticulitis. Patient has a 3 cm abscess in the pericolonic tissues superior to the bladder, and inferior to the sigmoid colon. The patient was seen this morning on rounds. He is resting comfortably in bed on room air. Patient states that his pain has greatly improved following administration of IV analgesia. Patient states he is currently unable to have a bowel movement. On exam, abdomen is soft, nondistended. The patient is guarding lower quadrant area. (+) Positive bowel sounds. Plan to continue medical management of the diverticular abscess with IV antibiotics. Surgery is consulted, appreciate their expertise. Reason For Visit: ACUTE SIGMOID DIVERTICULITIS WITH ABSCESS Physical Exam Vital Signs: Temp Pulse Resp BP Pulse Ox 98.2 F 81 18 114/73 100 11/27/18 11:42 11/27/18 11:42 11/27/18 11:42 11/27/18 11:42 11/27/18 11:42 Intake & Output 11/26/18 11/27/18 11/28/18 06:59 06:59 06:59 Intake Total 1000 2300 Balance 1000 2300 Weight 83.7 kg General appearance: PRESENT: no acute distress, well-developed, well-nourished Head exam: PRESENT: atraumatic, normocephalic Eye exam: PRESENT: conjunctiva pink, EOMI, PERRLA. ABSENT: scleral icterus Ear exam: PRESENT: normal external ear exam Mouth exam: PRESENT: moist, tongue midline Neck exam: ABSENT: carotid bruit, JVD, lymphadenopathy, thyromegaly Respiratory exam: PRESENT: clear to auscultation paulino. ABSENT: rales, rhonchi, w heezes Cardiovascular exam: PRESENT: RRR. ABSENT: diastolic murmur, rubs, systolic murmur Pulses: PRESENT: normal radial pulses, normal dorsalis pedis pul Vascular exam: PRESENT: normal capillary refill GI/Abdominal exam: PRESENT: normal bowel sounds, soft. ABSENT: distended, guarding, mass, organolmegaly, rebound, tenderness Rectal exam: PRESENT: deferred Extremities exam: PRESENT: full ROM. ABSENT: calf tenderness, clubbing, pedal edema Musculoskeletal exam: PRESENT: full ROM Neurological exam: PRESENT: alert, awake, oriented to person, oriented to place, oriented to time, oriented to situation Psychiatric exam: PRESENT: appropriate affect, normal mood. ABSENT: homicidal ideation, suicidal ideation Skin exam: PRESENT: dry, intact, warm. ABSENT: cyanosis, rash Results Laboratory Results: 11/27/18 07:05 11/27/18 07:05 11/26/18 11/26/18 11/26/18 17:47 17:47 17:47 WBC 14.9 H RBC 4.55 Hgb 13.7 Hct 39.8 MCV 87 MCH 30.1 MCHC 34.5 RDW 11.9 Plt Count 505 H Seg Neutrophils % 70.1 Lymphocytes % 17.3 Monocytes % 10.1 Eosinophils % 2.1 Basophils % 0.4 Absolute Neutrophils 10.4 H Absolute Lymphocytes 2.6 Absolute Monocytes 1.5 H Absolute Eosinophils 0.3 Absolute Basophils 0.1 Sodium 140.1 Potassium 4.8 Chloride 104 Carbon Dioxide 25 Anion Gap 11 BUN 16 Creatinine 0.98 Est GFR ( Amer) > 60 Est GFR (Non-Af Amer) > 60 Glucose 106 Lactic Acid Calcium 10.0 Magnesium Total Bilirubin 0.9 AST 80 H ALT 161 H Alkaline Phosphatase 218 H Total Protein 8.1 Albumin 4.4 Urine Color ADRIANNE Urine Appearance CLEAR Urine pH 5.0 Ur Specific [place] 1.029 Urine Protein NEGATIVE Urine Glucose (UA) NEGATIVE Urine Ketones NEGATIVE Urine Blood NEGATIVE Urine Nitrite NEGATIVE Ur Leukocyte Esterase NEGATIVE Urine WBC (Auto) 1 Urine RBC (Auto) 1 11/26/18 11/27/18 11/27/18 22:52 03:11 07:05 WBC RBC Hgb Hct MCV MCH MCHC RDW Plt Count Seg Neutrophils % Lymphocytes % Monocytes % Eosinophils % Basophils % Absolute Neutrophils Absolute Lymphocytes Absolute Monocytes Absolute Eosinophils Absolute Basophils Sodium Potassium Chloride Carbon Dioxide Anion Gap BUN Creatinine Est GFR ( Amer) Est GFR (Non-Af Amer) Glucose Lactic Acid 0.5 L 0.5 L 0.7 Calcium Magnesium Total Bilirubin AST ALT Alkaline Phosphatase Total Protein Albumin Urine Color Urine Appearance Urine pH Ur Specific [place] Urine Protein Urine Glucose (UA) Urine Ketones Urine Blood Urine Nitrite Ur Leukocyte Esterase Urine WBC (Auto) Urine RBC (Auto) 11/27/18 11/27/18 07:05 07:05 WBC 12.9 H RBC 4.07 L Hgb 12.1 L Hct 35.7 L MCV 88 MCH 29.8 MCHC 34.0 RDW 11.8 Plt Count 389 Seg Neutrophils % 72.1 Lymphocytes % 13.7 Monocytes % 11.6 Eosinophils % 2.3 Basophils % 0.3 Absolute Neutrophils 9.3 H Absolute Lymphocytes 1.8 Absolute Monocytes 1.5 H Absolute Eosinophils 0.3 Absolute Basophils 0.0 Sodium 139.0 Potassium 4.6 Chloride 106 Carbon Dioxide 25 Anion Gap 8 BUN 15 Creatinine 1.08 Est GFR ( Amer) > 60 Est GFR (Non-Af Amer) > 60 Glucose 92 Lactic Acid Calcium 8.8 Magnesium 1.9 Total Bilirubin 1.3 AST 42 ALT 106 H Alkaline Phosphatase 165 H Total Protein 6.3 Albumin 3.2 L Urine Color Urine Appearance Urine pH Ur Specific [place] Urine Protein Urine Glucose (UA) Urine Ketones Urine Blood Urine Nitrite Ur Leukocyte Esterase Urine WBC (Auto) Urine RBC (Auto) Impressions: Abdomen/Pelvis CT 11/26/18 19:14 IMPRESSION: Acute sigmoid diverticulitis with adjacent 3.5 cm developing abscess. Status: Imported from PACS Assessment and Plan - Diagnosis (1) Abscess of sigmoid colon Is this a current diagnosis for this admission?: Yes Plan: 3 cm abscess in the pericolonic tissues superior to the bladder, and inferior to the sigmoid colon. Surgery consulted Currently treated with IV zosyn - an appropriate single agent regimen for low risk community-acquired intra-abdominal infection Maintenance IVF NPO Fleets enema PRN for constipation Tylenol PRN for fever or pain Nubain PRN for severe pain If clinical picture does not improve, possible surgical intervention (2) Acute diverticulitis of intestine Is this a current diagnosis for this admission?: Yes Plan: see plan above (3) Tobacco use disorder, severe, dependence Is this a current diagnosis for this admission?: Yes Plan: Endorses tobacco use Offered nicotine patch - Time Time Spent with patient: 15-24 minutes Medications reviewed and adjusted accordingly: Yes Anticipated discharge: Home Within: within 72 hours - Inpatient Certification Based on my medical assessment, after consideration of the patient's comorbidities, presenting symptoms, or acuity I expect that the services needed warrant INPATIENT care.: Yes I certify that my determination is in accordance with my understanding of Medicare's requirements for reasonable and necessary INPATIENT services [42 CFR 412.3e].: Yes Medical Necessity: Need For Continuous Telemetry Monitoring, Risk of Complication if Not Cared For in Hospital - Plan Summary Plan Summary: Continue IV antibiotics. If clinical picture does not improve in 24 to 48 hours, may warrant surgical intervention
[2018-11-28] MEDS: PIPERACILLIN SODIUM/TAZOBACTAM 3.375 GM in NORMAL SALINE 100 ML IV SCH ×4 (00:33→17:33)
[2018-11-28] MEDS: RINGERS SOLUTION,LACTATED 1,000 ML IV PRN ×3 (00:35→19:36)
[2018-11-28] MEDS ORDERED: DIAZEPAM INJ 10 MG/2 ML DISP.SYRIN IV PRN (01:15)
[2018-11-28] MEDS ORDERED: NALBUPHINE HCL INJ 10 MG/1 ML AMPULE ONE (01:23)
[2018-11-28] MEDS: NALBUPHINE HCL INJ 10 MG/1 ML AMPULE IV PRN ×2 (01:43→06:18)
[2018-11-28] MEDS: HEPARIN SOD (PORCINE) 5,000 UNIT/ML 1 ML SYRINGE SUBCUT SCH ×3 (06:07→21:43)
[2018-11-28 06:17] LABS: ABSOLUTE BASOPHILS # (AUTO) 0.1 10^3/uL (0.0-0.2); ABSOLUTE EOSINOPHILS # (AUTO) 0.3 10^3/uL (0.0-0.6); ABSOLUTE LYMPHOCYTES (AUTO) 2.6 10^3/uL (0.5-4.7); ABSOLUTE MONOCYTES (AUTO) 1.1 10^3/uL (0.1-1.4); ABSOLUTE NEUT (AUTO) 6.2 10^3/uL (1.7-8.2); BASOPHILS % (AUTO) 0.6 % (0-2); EOSINOPHILS % (AUTO) 3.2 % (0-6); HEMATOCRIT 34.6 % (37.9-51.0); HEMOGLOBIN 11.9 g/dL (13.5-17.0); LYMPHOCYTES % (AUTO) 25.4 % (13-45); MEAN CORPUSCULAR HEMOGLOBIN 29.9 pg (27.0-33.4); MEAN CORPUSCULAR HGB CONC 34.5 g/dL (32.0-36.0); MEAN CORPUSCULAR VOLUME 87 fl (80-97); MONOCYTES % (AUTO) 11.1 % (3-13); PLATELET COUNT 380 10^3/uL (150-450); RED BLOOD COUNT 3.98 10^6/uL (4.35-5.55); RED CELL DISTRIBUTION WIDTH 11.6 % (11.5-14.0); SEGMENTED NEUTROPHILS % (AUTO) 59.7 % (42-78); TOTAL CELLS COUNTED % (AUTO) 100 %; WHITE BLOOD COUNT 10.3 10^3/uL (4.0-10.5)
[2018-11-28 06:27] LABS: ALANINE AMINOTRANSFERASE 68 U/L (21-72); ALBUMIN 3.1 g/dL (3.5-5.0); ALKALINE PHOSPHATASE 141 U/L (38-126); ANION GAP 7 (5-19); ASPARTATE AMINO TRANSFERASE 20 U/L (17-59); BILIRUBIN,DIRECT 0.3 mg/dL (0.0-0.4); BILIRUBIN,TOTAL 0.7 mg/dL (0.2-1.3); BLOOD UREA NITROGEN 10 mg/dL (7-20); CALCIUM 8.8 mg/dL (8.4-10.2); CARBON DIOXIDE 26 mmol/L (22-30); CHLORIDE 106 mmol/L (98-107); GLUCOSE 75 mg/dL (75-110); POTASSIUM 4.6 mmol/L (3.6-5.0); SODIUM 138.5 mmol/L (137-145)
[2018-11-28] MEDS: FAMOTIDINE INJ/PF 20 MG/2 ML SDV IV SCH ×2 (09:33→21:43)
[2018-11-28 10:45] LABS: HEMATOCRIT 35.7 % (37.9-51.0); HEMOGLOBIN 12.5 g/dL (13.5-17.0); MEAN CORPUSCULAR HEMOGLOBIN 30.2 pg (27.0-33.4); MEAN CORPUSCULAR VOLUME 86 fl (80-97); PLATELET COUNT 418 10^3/uL (150-450); RED BLOOD COUNT 4.14 10^6/uL (4.35-5.55); WHITE BLOOD COUNT 9.2 10^3/uL (4.0-10.5)
[2018-11-28 11:10] LABS: ALANINE AMINOTRANSFERASE 72 U/L (21-72); ALBUMIN 3.4 g/dL (3.5-5.0); ALKALINE PHOSPHATASE 156 U/L (38-126); ANION GAP 12 (5-19); ASPARTATE AMINO TRANSFERASE 20 U/L (17-59); BILIRUBIN,DIRECT 0.5 mg/dL (0.0-0.4); BILIRUBIN,TOTAL 0.8 mg/dL (0.2-1.3); BLOOD UREA NITROGEN 11 mg/dL (7-20); CALCIUM 8.7 mg/dL (8.4-10.2); CARBON DIOXIDE 21 mmol/L (22-30); CHLORIDE 105 mmol/L (98-107); POTASSIUM 4.1 mmol/L (3.6-5.0); SODIUM 138.3 mmol/L (137-145); TOTAL PROTEIN 6.4 g/dL (6.3-8.2)
[2018-11-28 11:12] LABS: GLUCOSE 68 mg/dL (75-110)
--- NOTE | 2018-11-28 11:40 | PDOC PROGRESS REPORT ---
Subjective Progress Note for:: 11/28/18 Subjective:: Patient states he feels some better. He did pass gas. He remains n.p.o. He states he is voiding well. He denies pneumaturia Reason For Visit: ACUTE SIGMOID DIVERTICULITIS WITH ABSCESS Physical Exam Vital Signs: Temp Pulse Resp BP Pulse Ox 97.7 F 76 18 123/71 100 11/28/18 05:49 11/28/18 05:49 11/28/18 05:49 11/28/18 05:49 11/28/18 05:49 Intake & Output 11/27/18 11/28/18 11/29/18 06:59 06:59 06:59 Intake Total 1000 3895 783 Balance 1000 3895 783 Weight 83.7 kg General appearance: PRESENT: no acute distress GI/Abdominal exam: PRESENT: other - The abdomen is not distended. There are no peritoneal signs. There is some suprapubic tenderness. I cannot appreciate a mass. Results Laboratory Results: 11/28/18 10:04 11/28/18 10:04 11/28/18 11/28/18 11/28/18 05:54 05:54 10:04 WBC 10.3 9.2 RBC 3.98 L 4.14 L Hgb 11.9 L 12.5 L Hct 34.6 L 35.7 L MCV 87 86 MCH 29.9 30.2 MCHC 34.5 35.0 RDW 11.6 12.0 Plt Count 380 418 Seg Neutrophils % 59.7 Lymphocytes % 25.4 Monocytes % 11.1 Eosinophils % 3.2 Basophils % 0.6 Absolute Neutrophils 6.2 Absolute Lymphocytes 2.6 Absolute Monocytes 1.1 Absolute Eosinophils 0.3 Absolute Basophils 0.1 Sodium 138.5 Potassium 4.6 Chloride 106 Carbon Dioxide 26 Anion Gap 7 BUN 10 Creatinine 0.93 Est GFR ( Amer) > 60 Est GFR (Non-Af Amer) > 60 Glucose 75 Calcium 8.8 Magnesium 2.0 Total Bilirubin 0.7 AST 20 ALT 68 Alkaline Phosphatase 141 H Total Protein 6.0 L Albumin 3.1 L 11/28/18 10:04 WBC RBC Hgb Hct MCV MCH MCHC RDW Plt Count Seg Neutrophils % Lymphocytes % Monocytes % Eosinophils % Basophils % Absolute Neutrophils Absolute Lymphocytes Absolute Monocytes Absolute Eosinophils Absolute Basophils Sodium 138.3 Potassium 4.1 Chloride 105 Carbon Dioxide 21 L Anion Gap 12 BUN 11 Creatinine 0.85 Est GFR ( Amer) > 60 Est GFR (Non-Af Amer) > 60 Glucose 68 L Calcium 8.7 Magnesium Total Bilirubin 0.8 AST 20 ALT 72 Alkaline Phosphatase 156 H Total Protein 6.4 Albumin 3.4 L Impressions: Abdomen/Pelvis CT 11/26/18 19:14 IMPRESSION: Acute sigmoid diverticulitis with adjacent 3.5 cm developing abscess. Assessment & Plan - Diagnosis (1) Abscess of sigmoid colon Is this a current diagnosis for this admission?: Yes Plan: Impression: Complicated diverticulitis, Hinchey classification 1, pericolonic abscess, clinically improved hospital day 3 on IV antibiotics, Zosyn. No clinical indication for surgical intervention today. Recommendations: 1. I explained the pathoanatomy of the patient's complicated diverticulitis. 2. We will start him on p.o. pain medication, discontinue new pain 3. Start clear liquids. 4. Hopefully patient can be managed at home on p.o. antibiotics in the next 24 to 48 hours.
[2018-11-28] MEDS ORDERED: POLYETHYLENE GLYCOL 3350 POWDER 17 GM/1 PACKET PO PRN (14:26)
--- NOTE | 2018-11-28 14:45 | PDOC PROGRESS REPORT ---
Subjective Progress Note for:: 11/28/18 Subjective:: This is a 38-year-old male admitted with complicated diverticulitis. Patient has a 3 cm abscess in the pericolonic tissues superior to the bladder, and inferior to the sigmoid colon. The patient was seen this morning on rounds. He is resting comfortably in bed on room air. He is sitting up eating a clear liquid diet tray. The patient states that his pain has greatly improved when compared to the last 48hrs. Patient states he is still unable to have a bowel movement due to rectal pain. On exam, abdomen is soft, nondistended. Mild TTP to lower quadrants. The patient is guarding lower quadrant area. (+) Positive bowel sounds. Plan to continue medical management of the diverticular abscess with IV antibiotics. If patient is able to tolerate diet and labs/vitals remain stable, plan to discharge home tomorrow. Surgery is consulted, appreciate their exper tise. Reason For Visit: ACUTE SIGMOID DIVERTICULITIS WITH ABSCESS Physical Exam Vital Signs: Temp Pulse Resp BP Pulse Ox 98.7 F 79 17 121/71 99 11/28/18 13:00 11/28/18 13:00 11/28/18 13:00 11/28/18 13:00 11/28/18 13:00 Intake & Output 11/27/18 11/28/18 11/29/18 06:59 06:59 06:59 Intake Total 1000 3895 883 Balance 1000 3895 883 Weight 83.7 kg General appearance: PRESENT: no acute distress, well-developed, well-nourished Head exam: PRESENT: atraumatic, normocephalic Eye exam: PRESENT: conjunctiva pink, EOMI, PERRLA. ABSENT: scleral icterus Ear exam: PRESENT: normal external ear exam Mouth exam: PRESENT: moist, tongue midline Neck exam: ABSENT: carotid bruit, JVD, lymphadenopathy, thyromegaly Respiratory exam: PRESENT: clear to auscultation paulino. ABSENT: rales, rhonchi, wheezes Cardiovascular exam: PRESENT: RRR. ABSENT: diastolic murmur, rubs, systolic murmur Pulses: PRESENT: normal dorsalis pedis pul Vascular exam: PRESENT: normal capillary refill GI/Abdominal exam: PRESENT: normal bowel sounds, soft, tenderness - lower quadrants, other - (+) guarding. ABSENT: distended, guarding, mass, organolmegaly, rebound Rectal exam: PRESENT: deferred Extremities exam: PRESENT: full ROM. ABSENT: calf tenderness, clubbing, pedal edema Musculoskeletal exam: PRESENT: ambulatory, full ROM Neurological exam: PRESENT: alert, awake, oriented to person, oriented to place, oriented to time, oriented to situation Psychiatric exam: PRESENT: appropriate affect, normal mood Skin exam: PRESENT: dry, intact, warm Results Laboratory Results: 11/28/18 10:04 11/28/18 10:04 11/28/18 11/28/18 11/28/18 05:54 05:54 10:04 WBC 10.3 9.2 RBC 3.98 L 4.14 L Hgb 11.9 L 12.5 L Hct 34.6 L 35.7 L MCV 87 86 MCH 29.9 30.2 MCHC 34.5 35.0 RDW 11.6 12.0 Plt Count 380 418 Seg Neutrophils % 59.7 Lymphocytes % 25.4 Monocytes % 11.1 Eosinophils % 3.2 Basophils % 0.6 Absolute Neutrophils 6.2 Absolute Lymphocytes 2.6 Absolute Monocytes 1.1 Absolute Eosinophils 0.3 Absolute Basophils 0.1 Sodium 138.5 Potassium 4.6 Chloride 106 Carbon Dioxide 26 Anion Gap 7 BUN 10 Creatinine 0.93 Est GFR ( Amer) > 60 Est GFR (Non-Af Amer) > 60 Glucose 75 Calcium 8.8 Magnesium 2.0 Total Bilirubin 0.7 AST 20 ALT 68 Alkaline Phosphatase 141 H Total Protein 6.0 L Albumin 3.1 L 11/28/18 10:04 WBC RBC Hgb Hct MCV MCH MCHC RDW Plt Count Seg Neutrophils % Lymphocytes % Monocytes % Eosinophils % Basophils % Absolute Neutrophils Absolute Lymphocytes Absolute Monocytes Absolute Eosinophils Absolute Basophils Sodium 138.3 Potassium 4.1 Chloride 105 Carbon Dioxide 21 L Anion Gap 12 BUN 11 Creatinine 0.85 Est GFR ( Amer) > 60 Est GFR (Non-Af Amer) > 60 Glucose 68 L Calcium 8.7 Magnesium Total Bilirubin 0.8 AST 20 ALT 72 Alkaline Phosphatase 156 H Total Protein 6.4 Albumin 3.4 L Impressions: Abdomen/Pelvis CT 11/26/18 19:14 IMPRESSION: Acute sigmoid diverticulitis with adjacent 3.5 cm developing abscess. Status: Imported from PACS Assessment and Plan - Diagnosis (1) Abscess of sigmoid colon Is this a current diagnosis for this admission?: Yes Plan: 3 cm abscess in the pericolonic tissues superior to the bladder, and inferior to the sigmoid colon. Surgery consulted Currently treated with IV zosyn - an appropriate single agent regimen for low risk community-acquired intra-abdominal infection Maintenance IVF Advanced to clear liquids today Miralax PRN for constipation Tylenol PRN for fever or pain Tramadol PRN for pain If clinical picture does not improve, possible surgical intervention (2) Acute diverticulitis of intestine Is this a current diagnosis for this admission?: Yes Plan: see plan above (3) Tobacco use disorder, severe, dependence Is this a current diagnosis for this admission?: Yes Plan: Endorses tobacco use Offered nicotine patch - Time Time Spent with patient: 15-24 minutes Medications reviewed and adjusted accordingly: Yes Anticipated discharge: Home Within: within 24 hours, within 48 hours - Inpatient Certification Based on my medical assessment, after consideration of the patient's comorbidities, presenting symptoms, or acuity I expect that the services needed warrant INPATIENT care.: Yes I certify that my determination is in accordance with my understanding of Medicare's requirements for reasonable and necessary INPATIENT services [42 CFR 412.3e].: Yes Medical Necessity: Need for IV Antibiotics, Need for Surgery - POSSIBLE NEED FOR ABSCESS DRAINAGE, Risk of Complication if Not Cared For in Hospital
[2018-11-28] MEDS: TRAMADOL HCL 50 MG TABLET PO PRN ×2 (15:18→21:43)
[2018-11-28] MEDS ORDERED: ONDANSETRON HCL INJ/PF 4 MG/2 ML SDV IV PRN (15:30)
[2018-11-28] MEDS: KETOROLAC TROMETHAMINE 10 MG TABLET PO PRN (18:25)
[2018-11-29] MEDS: PIPERACILLIN SODIUM/TAZOBACTAM 3.375 GM in NORMAL SALINE 100 ML IV SCH ×5 (00:45→23:44)
[2018-11-29] MEDS: KETOROLAC TROMETHAMINE 10 MG TABLET PO PRN ×4 (00:45→21:58)
[2018-11-29] MEDS: TRAMADOL HCL 50 MG TABLET PO PRN ×3 (04:13→19:41)
[2018-11-29] MEDS: RINGERS SOLUTION,LACTATED 1,000 ML IV PRN ×2 (04:13→12:50)
[2018-11-29] MEDS: HEPARIN SOD (PORCINE) 5,000 UNIT/ML 1 ML SYRINGE SUBCUT SCH ×3 (06:01→21:59)
[2018-11-29 06:11] LABS: ABSOLUTE EOSINOPHILS # (AUTO) 0.4 10^3/uL (0.0-0.6); ABSOLUTE LYMPHOCYTES (AUTO) 2.6 10^3/uL (0.5-4.7); ABSOLUTE MONOCYTES (AUTO) 0.8 10^3/uL (0.1-1.4); ABSOLUTE NEUT (AUTO) 3.4 10^3/uL (1.7-8.2); BASOPHILS % (AUTO) 0.6 % (0-2); EOSINOPHILS % (AUTO) 5.1 % (0-6); HEMOGLOBIN 11.7 g/dL (13.5-17.0); LYMPHOCYTES % (AUTO) 35.8 % (13-45); MEAN CORPUSCULAR HEMOGLOBIN 30.6 pg (27.0-33.4); MEAN CORPUSCULAR HGB CONC 35.3 g/dL (32.0-36.0); MEAN CORPUSCULAR VOLUME 87 fl (80-97); MONOCYTES % (AUTO) 11.6 % (3-13); PLATELET COUNT 400 10^3/uL (150-450); RED BLOOD COUNT 3.82 10^6/uL (4.35-5.55); RED CELL DISTRIBUTION WIDTH 11.9 % (11.5-14.0); SEGMENTED NEUTROPHILS % (AUTO) 46.9 % (42-78); TOTAL CELLS COUNTED % (AUTO) 100 %; WHITE BLOOD COUNT 7.3 10^3/uL (4.0-10.5)
[2018-11-29 06:39] LABS: ALANINE AMINOTRANSFERASE 57 U/L (21-72); ALBUMIN 3.2 g/dL (3.5-5.0); ALKALINE PHOSPHATASE 137 U/L (38-126); ASPARTATE AMINO TRANSFERASE 17 U/L (17-59); BILIRUBIN,DIRECT 0.3 mg/dL (0.0-0.4); BILIRUBIN,TOTAL 0.5 mg/dL (0.2-1.3); PHOSPHORUS 3.9 mg/dL (2.5-4.5); TOTAL PROTEIN 6.2 g/dL (6.3-8.2)
[2018-11-29 07:14] LABS: ALANINE AMINOTRANSFERASE 55 U/L (21-72); ALBUMIN 3.2 g/dL (3.5-5.0); ALKALINE PHOSPHATASE 138 U/L (38-126); ANION GAP 8 (5-19); ASPARTATE AMINO TRANSFERASE 17 U/L (17-59); BILIRUBIN,DIRECT 0.3 mg/dL (0.0-0.4); BILIRUBIN,TOTAL 0.5 mg/dL (0.2-1.3); BLOOD UREA NITROGEN 7 mg/dL (7-20); CALCIUM 8.9 mg/dL (8.4-10.2); CARBON DIOXIDE 28 mmol/L (22-30); CHLORIDE 104 mmol/L (98-107); GLUCOSE 89 mg/dL (75-110); POTASSIUM 4.5 mmol/L (3.6-5.0); SODIUM 140.3 mmol/L (137-145); TOTAL PROTEIN 6.2 g/dL (6.3-8.2)
--- NOTE | 2018-11-29 08:57 | PDOC PROGRESS REPORT ---
Subjective Progress Note for:: 11/29/18 Subjective:: still with left sided pain passed some flatus, and stool pain with urination Reason For Visit: ACUTE SIGMOID DIVERTICULITIS WITH ABSCES Physical Exam Vital Signs: Temp Pulse Resp BP Pulse Ox 98.4 F 69 16 119/73 100 11/28/18 23:00 11/28/18 23:00 11/28/18 23:00 11/28/18 23:00 11/28/18 23:00 Intake & Output 11/28/18 11/29/18 11/30/18 06:59 06:59 06:59 Intake Total 3895 5043 100 Balance 3895 5043 100 Weight 84.2 kg General appearance: PRESENT: mild distress Head exam: PRESENT: normocephalic Eye exam: PRESENT: EOMI Ear exam: PRESENT: normal external ear exam Mouth exam: PRESENT: moist Neck exam: PRESENT: full ROM Respiratory exam: PRESENT: clear to auscultation paulino Cardiovascular exam: PRESENT: RRR Pulses: PRESENT: normal radial pulses, normal femoral pulses GI/Abdominal exam: PRESENT: tenderness - llq, no rebound Rectal exam: PRESENT: deferred Extremities exam: PRESENT: full ROM Musculoskeletal exam: PRESENT: full ROM Neurological exam: PRESENT: alert, awake, oriented to person, oriented to place Psychiatric exam: PRESENT: appropriate affect Skin exam: PRESENT: dry Results Laboratory Results: 11/29/18 05:08 11/29/18 05:08 11/28/18 11/28/18 11/29/18 10:04 10:04 05:08 WBC 9.2 7.3 RBC 4.14 L 3.82 L Hgb 12.5 L 11.7 L Hct 35.7 L 33.0 L MCV 86 87 MCH 30.2 30.6 MCHC 35.0 35.3 RDW 12.0 11.9 Plt Count 418 400 Seg Neutrophils % 46.9 Lymphocytes % 35.8 Monocytes % 11.6 Eosinophils % 5.1 Basophils % 0.6 Absolute Neutrophils 3.4 Absolute Lymphocytes 2.6 Absolute Monocytes 0.8 Absolute Eosinophils 0.4 Absolute Basophils 0.0 Sodium 138.3 Potassium 4.1 Chloride 105 Carbon Dioxide 21 L Anion Gap 12 BUN 11 Creatinine 0.85 Est GFR ( Amer) > 60 Est GFR (Non-Af Amer) > 60 Glucose 68 L Calcium 8.7 Phosphorus Magnesium Total Bilirubin 0.8 AST 20 ALT 72 Alkaline Phosphatase 156 H Total Protein 6.4 Albumin 3.4 L 11/29/18 11/29/18 05:08 05:08 WBC RBC Hgb Hct MCV MCH MCHC RDW Plt Count Seg Neutrophils % Lymphocytes % Monocytes % Eosinophils % Basophils % Absolute Neutrophils Absolute Lymphocytes Absolute Monocytes Absolute Eosinophils Absolute Basophils Sodium 140.3 Potassium 4.5 Chloride 104 Carbon Dioxide 28 Anion Gap 8 BUN 7 Creatinine 0.99 Est GFR ( Amer) > 60 Est GFR (Non-Af Amer) > 60 Glucose 89 Calcium 8.9 Phosphorus 3.9 Magnesium 2.1 Total Bilirubin 0.5 0.5 AST 17 17 ALT 57 55 Alkaline Phosphatase 137 H 138 H Total Protein 6.2 L 6.2 L Albumin 3.2 L 3.2 L Impressions: Abdomen/Pelvis CT 11/26/18 19:14 IMPRESSION: Acute sigmoid diverticulitis with adjacent 3.5 cm developing abscess. Assessment & Plan - Diagnosis (1) Abscess of sigmoid colon Is this a current diagnosis for this admission?: Yes - Plan Summary Plan Summary: still with left sided abd pain chip some clears will obtain ct today to f/u on abscess
[2018-11-29] MEDS: FAMOTIDINE INJ/PF 20 MG/2 ML SDV IV SCH ×2 (09:12→22:00)
--- NOTE | 2018-11-29 12:25 | RADIOLOGY REPORT (SQ) ---
EXAM DESCRIPTION: CT ABD/PELVIS ORAL ONLY COMPLETED DATE/TIME: 11/29/2018 12:02 pm REASON FOR STUDY: diverticulitis, please use gastrografin. COMPARISON: 11/26/2018 TECHNIQUE: CT scan of the abdomen and pelvis performed with oral contrast and no intravenous contras t. Images reviewed with lung, soft tissue, and bone windows. Reconstructed coronal and sagittal MPR i mages reviewed. All images stored on PACS. All CT scanners at this facility use dose modulation, iterative reconstruction, and/or weight based d osing when appropriate to reduce radiation dose to as low as reasonably achievable (ALARA). [facility]: Dose Right [facility]: CareDose [facility]: Dose Right [facility]: Teradose 4D [facility]: [employer] RADIATION DOSE: CT Rad equipment meets quality standard of care and radiation dose reduction techniq ues were employed. CTDIvol: 6.3 mGy. DLP: 347 mGy-cm.mGy. LIMITATIONS: None. FINDINGS: LOWER CHEST: No significant findings. No nodules or infiltrates. NON-CONTRASTED LIVER, SPLEEN, ADRENALS: Evaluation limited by lack of IV contrast. No identified sign ificant masses. PANCREAS: No masses. No peripancreatic inflammatory changes. GALLBLADDER: No identified stones by CT criteria. No inflammatory changes to suggest cholecystitis. RIGHT KIDNEY AND URETER: No solid masses. No significant calcification. No hydronephrosis or hydroure ter. LEFT KIDNEY AND URETER: No solid masses. No significant calcification. No hydronephrosis or hydrouret er. AORTA AND RETROPERITONEUM: No aneurysm. No retroperitoneal masses or adenopathy. BOWEL AND PERITONEAL CAVITY: Persists inflammatory changes involving the sigmoid colon this is improv ed from prior study. The developing abscess previously described has essentially resolved. There is some bladder wall thickening on the left most likely secondary to the diverticulitis. APPENDIX: Normal. PELVIS, BLADDER, AND ABDOMINAL WALL: Bladder wall thickening as discussed above. Small umbilical her santos containing omental fat only. BONES: No significant findings. OTHER: No other significant finding. IMPRESSION: Persistent sigmoid diverticulitis but improved from prior study. Previously described d eveloping abscess has largely resolved. There is left-sided bladder wall thickening most likely rela pita to the diverticulitis. This is not significantly changed from prior study. TECHNICAL DOCUMENTATION: JOB ID: [id number] Quality ID # [id number]: Final reports with documentation of one or more dose reduction techniques (e.g., Au tomated exposure control, adjustment of the mA and/or kV according to patient size, use of iterative reconstruction technique) 2010 [employer]- All Rights Reserved Reading location - IP/workstation name: [email or web address]
--- NOTE | 2018-11-29 23:14 | PDOC PROGRESS REPORT ---
Subjective Progress Note for:: 11/29/18 Subjective:: This is a 38-year-old male admitted with complicated diverticulitis. Patient has a 3 cm abscess in the pericolonic tissues superior to the bladder, and inferior to the sigmoid colon. The patient was seen this morning on rounds. He is resting comfortably in bed on room air. He is sitting up eating a clear liquid diet tray. The patient states he is hungry and wants solid foods. Patient states he was able to have 2 bowel movements today. On exam, abdomen is soft, nondistended. Mild TTP to lower quadrants. Plan to continue medical management of the diverticular abscess with IV antibiotics. Advane diet today, if he is able to tolerate will d/c home tomorro w. Reason For Visit: ACUTE SIGMOID DIVERTICULITIS WITH ABSCESS Physical Exam Vital Signs: Temp Pulse Resp BP Pulse Ox 98.5 F 82 16 117/65 98 11/29/18 19:00 11/29/18 19:00 11/29/18 19:00 11/29/18 19:00 11/29/18 19:00 Intake & Output 11/28/18 11/29/18 11/30/18 06:59 06:59 06:59 Intake Total 3895 5043 1800 Balance 3895 5043 1800 Weight 84.2 kg General appearance: PRESENT: no acute distress, well-developed, well-nourished Head exam: PRESENT: atraumatic, normocephalic Eye exam: PRESENT: conjunctiva pink, EOMI, PERRLA. ABSENT: scleral icterus Ear exam: PRESENT: normal external ear exam Mouth exam: PRESENT: moist, tongue midline Neck exam: PRESENT: full ROM. ABSENT: carotid bruit, JVD, lymphadenopathy, thyromegaly Respiratory exam: PRESENT: clear to auscultation paulino, symmetrical, unlabored. ABSENT: rales, rhonchi, wheezes Cardiovascular exam: PRESENT: RRR. ABSENT: diastolic murmur, rubs, systolic murmur Pulses: PRESENT: normal radial pulses, normal dorsalis pedis pul Vascular exam: PRESENT: normal capillary refill GI/Abdominal exam: PRESENT: normal bowel sounds, soft. ABSENT: distended, guarding, mass, organolmegaly, rebound, tenderness Rectal exam: PRESENT: deferred Extremities exam: PRESENT: full ROM. ABSENT: calf tenderness, clubbing, pedal edema Neurological exam: PRESENT: alert, awake, oriented to person, oriented to place, oriented to time, oriented to situation Psychiatric exam: PRESENT: appropriate affect, normal mood Skin exam: PRESENT: dry, intact, warm. ABSENT: cyanosis, rash Results Laboratory Results: 11/29/18 05:08 11/29/18 05:08 11/29/18 11/29/18 11/29/18 05:08 05:08 05:08 WBC 7.3 RBC 3.82 L Hgb 11.7 L Hct 33.0 L MCV 87 MCH 30.6 MCHC 35.3 RDW 11.9 Plt Count 400 Seg Neutrophils % 46.9 Lymphocytes % 35.8 Monocytes % 11.6 Eosinophils % 5.1 Basophils % 0.6 Absolute Neutrophils 3.4 Absolute Lymphocytes 2.6 Absolute Monocytes 0.8 Absolute Eosinophils 0.4 Absolute Basophils 0.0 Sodium 140.3 Potassium 4.5 Chloride 104 Carbon Dioxide 28 Anion Gap 8 BUN 7 Creatinine 0.99 Est GFR ( Amer) > 60 Est GFR (Non-Af Amer) > 60 Glucose 89 Calcium 8.9 Phosphorus 3.9 Magnesium 2.1 Total Bilirubin 0.5 0.5 AST 17 17 ALT 57 55 Alkaline Phosphatase 137 H 138 H Total Protein 6.2 L 6.2 L Albumin 3.2 L 3.2 L Impressions: Abdomen/Pelvis CT 11/29/18 00:00 IMPRESSION: Persistent sigmoid diverticulitis but improved from prior study. Previously described developing abscess has largely resolved. There is left- sided bladder wall thickening most likely related to the diverticulitis. This is not significantly changed from prior study. Status: Imported from PACS Assessment and Plan - Diagnosis (1) Abscess of sigmoid colon Is this a current diagnosis for this admission?: Yes Plan: 3 cm abscess in the pericolonic tissues superior to the bladder, and inferior to the sigmoid colon. Surgery consulted Currently treated with IV zosyn - an appropriate single agent regimen for low risk community-acquired intra-abdominal infection Maintenance IVF Advanced to BRAT diet today Miralax PRN for constipation Tylenol PRN for fever or pain Tramadol PRN for pain (2) Acute diverticulitis of intestine Is this a current diagnosis for this admission?: Yes Plan: see plan above (3) Tobacco use disorder, severe, dependence Is this a current diagnosis for this admission?: Yes Plan: Endorses tobacco use Offered nicotine patch - Time Time Spent with patient: 15-24 minutes Medications reviewed and adjusted accordingly: Yes Anticipated discharge: Home Within: within 24 hours - Inpatient Certification Based on my medical assessment, after consideration of the patient's comorbidities, presenting symptoms, or acuity I expect that the services needed warrant INPATIENT care.: Yes I certify that my determination is in accordance with my understanding of Medicare's requirements for reasonable and necessary INPATIENT services [42 CFR 412.3e].: Yes Medical Necessity: Need for IV Antibiotics
[2018-11-30 04:13] LABS: HEMATOCRIT 33.2 % (37.9-51.0); HEMOGLOBIN 11.6 g/dL (13.5-17.0); MEAN CORPUSCULAR HEMOGLOBIN 30.3 pg (27.0-33.4); MEAN CORPUSCULAR HGB CONC 34.9 g/dL (32.0-36.0); MEAN CORPUSCULAR VOLUME 87 fl (80-97); PLATELET COUNT 443 10^3/uL (150-450); RED BLOOD COUNT 3.83 10^6/uL (4.35-5.55); RED CELL DISTRIBUTION WIDTH 11.7 % (11.5-14.0); WHITE BLOOD COUNT 7.8 10^3/uL (4.0-10.5)
[2018-11-30 04:32] LABS: ALANINE AMINOTRANSFERASE 55 U/L (21-72); ALBUMIN 3.1 g/dL (3.5-5.0); ALKALINE PHOSPHATASE 127 U/L (38-126); ANION GAP 7 (5-19); ASPARTATE AMINO TRANSFERASE 29 U/L (17-59); BILIRUBIN,DIRECT 0.4 mg/dL (0.0-0.4); BILIRUBIN,TOTAL 0.5 mg/dL (0.2-1.3); BLOOD UREA NITROGEN 6 mg/dL (7-20); CARBON DIOXIDE 29 mmol/L (22-30); CHLORIDE 106 mmol/L (98-107); GLUCOSE 84 mg/dL (75-110); PHOSPHORUS 4.5 mg/dL (2.5-4.5); POTASSIUM 4.8 mmol/L (3.6-5.0); SODIUM 141.5 mmol/L (137-145); TOTAL PROTEIN 6.1 g/dL (6.3-8.2)
[2018-11-30] MEDS: PIPERACILLIN SODIUM/TAZOBACTAM 3.375 GM in NORMAL SALINE 100 ML IV SCH (05:58)
[2018-11-30] MEDS: HEPARIN SOD (PORCINE) 5,000 UNIT/ML 1 ML SYRINGE SUBCUT SCH ×2 (06:02→14:00)
[2018-11-30 08:43] VITALS: BP 124/87
[2018-11-30] MEDS: FAMOTIDINE INJ/PF 20 MG/2 ML SDV IV SCH (09:45)
--- NOTE | 2018-11-30 10:12 | PDOC PROGRESS REPORT ---
Subjective Subjective:: Patient feeling much better; tolerating a diet. Minimal pain. CT scan yesterday demonstrated near resolution of the extracolonic phlegmon Reason For Visit: ACUTE SIGMOID DIVERTICULITIS WITH ABSCESS Physical Exam Vital Signs: Temp Pulse Resp BP Pulse Ox 97.7 F 59 L 12 124/87 H 100 11/30/18 07:00 11/30/18 07:00 11/30/18 07:00 11/30/18 07:00 11/30/18 07:00 Intake & Output 11/29/18 11/30/18 12/01/18 06:59 06:59 06:59 Intake Total 5043 3200 Balance 5043 3200 Weight 84.2 kg 83.6 kg General appearance: PRESENT: no acute distress GI/Abdominal exam: PRESENT: other - Minimal abdominal tenderness Results Laboratory Results: 11/30/18 03:54 11/30/18 03:54 11/30/18 11/30/18 03:54 03:54 WBC 7.8 RBC 3.83 L Hgb 11.6 L Hct 33.2 L MCV 87 MCH 30.3 MCHC 34.9 RDW 11.7 Plt Count 443 Sodium 141.5 Potassium 4.8 Chloride 106 Carbon Dioxide 29 Anion Gap 7 BUN 6 L Creatinine 1.05 Est GFR ( Amer) > 60 Est GFR (Non-Af Amer) > 60 Glucose 84 Calcium 9.0 Phosphorus 4.5 Magnesium 2.1 Total Bilirubin 0.5 AST 29 ALT 55 Alkaline Phosphatase 127 H Total Protein 6.1 L Albumin 3.1 L Impressions: Abdomen/Pelvis CT 11/29/18 00:00 IMPRESSION: Persistent sigmoid diverticulitis but improved from prior study. Previously described developing abscess has largely resolved. There is left- sided bladder wall thickening most likely related to the diverticulitis. This is not significantly changed from prior study. Assessment & Plan - Diagnosis (1) Abscess of sigmoid colon Is this a current diagnosis for this admission?: Yes Plan: Impression: Continues to improve clinically from pericolonic abscess secondary to perforated diverticular disease Recommendations: 1. Can be discharged home on a high-fiber diet, Colace 100 mg p.o. twice daily; agree with short p.o. antibiotic course. 2. Patient can follow-up with [facility] to discuss interval colonoscopy. 3. She is to contact our office should his symptoms deteriorate..
[2018-11-30] MEDS ORDERED: METRONIDAZOLE 500 MG TABLET PO SCH (12:30)
[2018-11-30] MEDS ORDERED: CIPROFLOXACIN HCL 500 MG TABLET PO SCH (12:30)
--- NOTE | 2018-12-05 08:20 | PDOC DISCHARGE SUMMARY ---
General - Admit/Disc Date/PCP Admission Date/Primary Care Provider: 11/26/18 21:19 Discharge Date: 11/30/18 - Discharge Diagnosis (1) Abscess of sigmoid colon Is this a current diagnosis for this admission?: Yes (2) Acute diverticulitis of intestine Is this a current diagnosis for this admission?: Yes (3) Tobacco use disorder, severe, dependence Is this a current diagnosis for this admission?: Yes - Additional Information Resuscitation Status: Full Code Discharge Diet: As Tolerated Discharge Activity: Activity As Tolerated Prescriptions: Ciprofloxacin HCl [Cipro 500 mg Tablet] 500 mg PO Q12 #12 tablet Metronidazole [Flagyl 500 mg Tablet] 500 mg PO Q8 #18 tablet Nicotine [Nicoderm 21 mg/24 Hr Transderm Patch] 1 each TD DAILYP PRN #30 patch.td24 PRN Reason: Home Medications: Ciprofloxacin HCl [Cipro 500 mg Tablet] 500 mg PO Q12 #12 tablet 11/30/18 Metronidazole [Flagyl 500 mg Tablet] 500 mg PO Q8 #18 tablet 11/30/18 Nicotine [Nicoderm 21 mg/24 Hr Transderm Patch] 1 each TD DAILYP PRN #30 patch.td24 11/30/18 History of Present Illness History of Present Illness: FRANDY SANDOVAL is a 38 year old male who presented to the Emergency Room with a 1 1/2 week history of abdominal pain. He admits a constantly present, waxing and waning (from mild to extremely severe), dull, aching, pressure-like pain in his suprapubic region, without radiation. He endorses that the pain worsens in association with defecation and urination. He acknowledges that his pain has been transiently improved by taking Rusty aspirin, 2 tablets every 4 hours. He further admits frequent episodes of subjective fever with chills and generalized malaise occurring over the last 7 days. He also endorses brief periods of anorexia associated with the most severe pain episodes. He denies prior similar episodes and he has not identified any other aggravating or ameliorating factors for his pain. In the ER he was found to have acute sigmoid diverticulitis with abscess formation and as such was admitted for further evaluation and treatment. Hospital Course Hospital Course: This is a 38-year-old male admitted with complicated diverticulitis. Patient has a 3 cm abscess in the pericolonic tissues superior to the bladder, and inferior to the sigmoid colon. Surgery was consulted. The patient was treated medically with IV zosyn - an appropriate single agent regimen for low risk community-acquired intra-abdominal infection. Over the course of 4 days, the patient's symptoms improved. A repeat CT was done on HD#4 and it showed nearly complete resolution of the abscess. The patient was able to tolerate a PO diet without difficulty. He was discharged home with Flagyl and Cipro. Additionally, a great deal of time was spent counseling the patient regarding smoking cessation. Physical Exam Vital Signs: Temp Pulse Resp BP Pulse Ox 97.7 F 59 L 12 124/87 H 100 11/30/18 14:41 11/30/18 14:41 11/30/18 14:41 11/30/18 14:41 11/30/18 14:41 General appearance: PRESENT: no acute distress, well-developed, well-nourished Head exam: PRESENT: atraumatic, normocephalic Eye exam: PRESENT: conjunctiva pink, EOMI, PERRLA. ABSENT: scleral icterus Ear exam: PRESENT: normal external ear exam Mouth exam: PRESENT: moist, tongue midline Neck exam: ABSENT: carotid bruit, JVD, lymphadenopathy, thyromegaly Respiratory exam: PRESENT: clear to auscultation paulino. ABSENT: rales, rhonchi, wheezes Cardiovascular exam: PRESENT: RRR. ABSENT: diastolic murmur, rubs, systolic murmur Pulses: PRESENT: normal dorsalis pedis pul Vascular exam: PRESENT: normal capillary refill GI/Abdominal exam: PRESENT: normal bowel sounds, soft. ABSENT: distended, guarding, mass, organolmegaly, rebound, tenderness Rectal exam: PRESENT: deferred Extremities exam: PRESENT: full ROM. ABSENT: calf tenderness, clubbing, pedal edema Neurological exam: PRESENT: alert, awake, oriented to person, oriented to place, oriented to time, oriented to situation, CN II-XII grossly intact. ABSENT: motor sensory deficit Psychiatric exam: PRESENT: appropriate affect, normal mood. ABSENT: homicidal ideation, suicidal ideation Skin exam: PRESENT: dry, intact, warm. ABSENT: cyanosis, rash Results Laboratory Results: 11/30/18 03:54 11/30/18 03:54 Impressions: Abdomen/Pelvis CT 11/29/18 00:00 IMPRESSION: Persistent sigmoid diverticulitis but improved from prior study. Previously described developing abscess has largely resolved. There is left- sided bladder wall thickening most likely related to the diverticulitis. This is not significantly changed from prior study. Status: Imported from PACS Qualifiers - * PATIENT BEING DISCHARGED WITH ANY OF THE FOLLOWING DIAGNOSIS: No Acute Heart Failure - Is this a Heart Failure Patient?: No
== END 2018-11-30 14:55 | disposition home or self-care (01) | DRG 392 ==
LOC: ER 15:59 → EH 21:19 → 2N 23:14 → 5 11-28 05:58
PROVIDERS: ADMIT Emergency Medicine; ATTEND Emergency Medicine
DX: K57.20 Diverticulitis of large intestine with perforation and abscess without bleeding (principal); F17.210 Nicotine dependence, cigarettes, uncomplicated; Z79.899 Other long term (current) drug therapy; Z82.49 Family history of ischemic heart disease and other diseases of the circulatory system; Z79.82 Long term (current) use of aspirin
CPT/HCPCS: 36415; 74176; 74177; 80048; 80053; 80076; 81001; 82962; 83605; 83735; 84100; 85025; 85027; 87040; 87077; 87491; 87591; 96361; 96374; 96375; 99285; J0744; J1644; J1885; J2300; J2405; J2543; J3360; J3490; J7030; J7050; J7120; S0028

== ENCOUNTER → 2019-01-15 | Outpatient (CLI) | payer OTHER ==
--- NOTE | 2019-01-15 12:58 | RADIOLOGY REPORT (SQ) ---
EXAM DESCRIPTION: BARIUM ENEMA W/AIR COMPLETED DATE/TIME: 01/15/2019 10:35 am REASON FOR STUDY: DVTRCLI OF INTEST, PART UNSP, W/O PERF OR ABSCESS W/O BLEED K57.92 DVTRCLI OF INT EST, PART UNSP, W/O PERF OR ABSCESS W/O COMPARISON: None. FLUOROSCOPY TIME: 5.2 minutes 20 images saved to PACS. TECHNIQUE: Following retrograde filling of the colon with barium and air, fluoroscopic spot and over head imaging of the colon was obtained and saved to PACS. LIMITATIONS: None. FINDINGS: STAVE MILL HAND KUB: Normal abdominal film with adequate bowel prep. CECUM: Normal mucosa without intraluminal filling defects, intrinsic or extrinsic masses, or lesions. Barium filled appendix identified. ASCENDING COLON: Normal mucosa without intraluminal filling defects, intrinsic or extrinsic masses, o r lesions. TRANSVERSE COLON: Normal mucosa without intraluminal filling defects, intrinsic or extrinsic masses, or lesions. DESCENDING COLON: Normal mucosa without intraluminal filling defects or intrinsic masses. A few smal l scattered diverticuli identified. SIGMOID COLON: Normal mucosa without intraluminal filling defects or intrinsic masses. A few small s cattered diverticuli identified. RECTUM: Normal mucosa without intraluminal filling defects, intrinsic or extrinsic masses, or lesions . POST EVAC: Near complete evacuation of barium with no additional findings. OTHER: No other significant finding. IMPRESSION: A FEW SMALL SCATTERED DIVERTICULI SEEN IN THE DESCENDING AND SIGMOID COLON. OTHERWISE U NREMARKABLE EXAM. COMMENT: None Quality ID [id number]: Final reports for procedures using fluoroscopy that document radiation exposure chinedu radha, or exposure time and number of fluorographic images (if radiation exposure indices are not avail able) TECHNICAL DOCUMENTATION: JOB ID: [id number] [employer]- All Rights Reserved Reading location - IP/workstation name: [email or web address]
== END ==
LOC: RAD 01-13 10:03
PROVIDERS: ATTEND Surgery
DX: K57.92 Diverticulitis of intestine, part unspecified, without perforation or abscess without bleeding (principal)
CPT/HCPCS: 74280